=== PATIENT | female | born 1985 | race Caucasian/White ===

== ENCOUNTER 2018-02-04 17:05 | Outpatient (CLI) | payer BC, SELFPAY ==
--- NOTE | 2018-02-04 18:01 | PM.OBTRLD ---
Visit Information Visit Information Date of evaluation: 02/04/18 Primary OB Provider: Iliana Bartholomew Reason for Evaluation: Yes pre-term labor Vital Signs Vital Signs: Blood pressure 117/79, pulse of 104, temperature 97.4? Review of Systems Review of Systems Patient just moved here from [place]. She has a known 24 week twin gestation. Recent ultrasound showed a 2.1 cm cervix. She does have a history of a LEEP procedure. She was walking and felt some tightening and mild cramping and presented for evaluation. She also noticed an increase in her vaginal discharge. She has been using vaginal progesterone. Babies have been moving well. No bleeding. Exam Narrative Exam Narrative: Abdomen is soft, nontender. Speculum exam there is a lot of material in her vagina that she states is the vaginal progesterone. Her cervix appears closed. Sterile vaginal exam: the cervix again feels closed and slightly shortened. Evaluation Evaluation Baseline heart rate: 145 Variability: Average (6-10) monitor decelerations: Absent Cervical dilation (cm): 0 Cervical effacement (%): 50 station: -4 Comments: Patient with some possible mild uterine irritability. heart tone of 1 baby were 150s baseline, 2nd baby 145 baseline. Normal tracing for 24 weeks. Diagnosis, Plan/Disposition Final Diagnosis (1) 24 weeks gestation of : Current Visit: Yes Status: Acute (2) Premature labor: Current Visit: Yes Status: Acute (3) Twin gestation in second trimester: Current Visit: Yes Status: Acute Plan/Disposition Plan: Patient is to push fluids and rest. She has an appointment in 4 days in the OB office. She is to call if she has any worsening of her symptoms prior to that time. OB Disposition: home
== END 2018-02-04 18:05 | disposition home or self-care (01) ==
LOC: LABOR 18:12 → OB 02-05 16:55
PROVIDERS: Visit Provider Specialist
DX: O30.002 Twin pregnancy, unspecified number of placenta and unspecified number of amniotic sacs, second trimester (principal); Z3A.24 24 weeks gestation of pregnancy; O60.02 Preterm labor without delivery, second trimester
CPT/HCPCS: 59025; 59050; G0378; G0379

== ENCOUNTER 2018-02-09 16:51 | Outpatient (CLI) | payer BC, SELFPAY ==
--- NOTE | 2018-02-09 17:39 | PM.OBTRLD ---
Visit Information Visit Information Date of evaluation: 02/09/18 Primary OB Provider: Iliana Bartholomew Reason for Evaluation: Yes pre-term labor Evaluation Evaluation Baseline heart rate: 150 Variability: Moderate (11-25) monitor accelerations: Present Contraction Frequency (minutes): 0 Diagnosis, Plan/Disposition Final Diagnosis (1) Twin gestation in second trimester: Current Visit: No Status: Acute (2) Premature labor: Current Visit: No Status: Acute (3) 24 weeks gestation of : Current Visit: No Status: Acute Plan/Disposition Plan: No contractions seen on the monitor patient is discharged home to be on modified bedrest and pushing fluids. She has a follow-up appointment in 1 week. Precautions reviewed with patient. OB Disposition: home
[2018-02-09 17:46] LABS: Appearance Urine UA CLEAR; Bilirubin Urine UA NEGATIVE (NEGATIVE); Color Urine UA YELLOW; Glucose Urine UA NEGATIVE (Normal); Ketones Urine UA TRACE (NEGATIVE); Leukocyte Esterase Urine UA NEGATIVE (NEGATIVE); Nitrite Urine UA NEGATIVE (Negative); Occult Blood Urine UA NEGATIVE (Negative); Protein Urine UA NEGATIVE (Negative); Urobilinogen Urine UA 0.2 E.U./dL (0.2)
== END 2018-02-09 17:53 | disposition home or self-care (01) ==
LOC: OB 02-10 10:24
PROVIDERS: Visit Provider Specialist
DX: O30.002 Twin pregnancy, unspecified number of placenta and unspecified number of amniotic sacs, second trimester (principal); Z3A.24 24 weeks gestation of pregnancy
CPT/HCPCS: 59025; 81003; G0378; G0379

== ENCOUNTER → 2018-02-18 15:02 | Outpatient (CLI) | payer BC, SELFPAY ==
[2018-02-18 16:58] LABS: Hematocrit 27.7 % (36-46); Hemoglobin 9.7 g/dL (12.0-16.0)
[2018-02-18 17:06] LABS: GTT (PREG) 1 Hour PP 50gm Dose 121 mg/dL (76-139)
== END ==
PROVIDERS: Visit Provider Specialist
DX: Z3A.24 24 weeks gestation of pregnancy (principal)
CPT/HCPCS: 36415; 82950; 85014; 85018

== ENCOUNTER 2018-03-18 16:54 | Outpatient (CLI) | payer BC, OTHER, SELFPAY ==
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
== END 2018-03-18 18:00 | disposition home or self-care (01) ==
LOC: LABOR 17:04 → OB 03-19 10:23
PROVIDERS: Visit Provider Specialist
DX: O30.003 Twin pregnancy, unspecified number of placenta and unspecified number of amniotic sacs, third trimester (principal); V89.2XXA Person injured in unspecified motor-vehicle accident, traffic, initial encounter; Z3A.29 29 weeks gestation of pregnancy
CPT/HCPCS: 59025; G0378; G0379

== ENCOUNTER → 2018-03-26 15:10 | Outpatient (CLI) | payer OTHER, SELFPAY ==
[2018-03-26 16:18] LABS: Hematocrit 31.5 % (36-46); Hemoglobin 10.8 g/dL (12.0-16.0)
== END ==
PROVIDERS: Visit Provider Specialist
DX: D64.9 Anemia, unspecified (principal)
CPT/HCPCS: 36415; 85014; 85018

== ENCOUNTER 2018-04-12 19:42 | Outpatient (CLI) | payer OTHER, SELFPAY ==
--- NOTE | 2018-04-13 10:43 | PM.OBTRLD ---
Visit Information Visit Information Date of evaluation: 04/12/18 Primary OB Provider: Iliana Bartholomew Reason for Evaluation: Yes non-stress test non-stress test reason: decreased movement Evaluation Evaluation Baseline heart rate: 130 Variability: Moderate (11-25) (Both twin a and B) monitor accelerations: Present (Both twin a and B) monitor decelerations: Absent (Both twin a and b) Diagnosis, Plan/Disposition Final Diagnosis (1) Twin gestation in third trimester: Current Visit: No Status: Acute Plan/Disposition Plan: Patient had complained of decreased movement at 33 weeks 3 days. NST reactive for both. Patient reassured OB Disposition: home
== END 2018-04-12 20:26 | disposition home or self-care (01) ==
LOC: OB 04-15 13:13
PROVIDERS: Visit Provider Specialist
DX: O30.003 Twin pregnancy, unspecified number of placenta and unspecified number of amniotic sacs, third trimester (principal); Z3A.29 29 weeks gestation of pregnancy
CPT/HCPCS: 59025; G0378; G0379

== ENCOUNTER → 2018-04-15 09:49 | Outpatient (CLI) | payer OTHER, SELFPAY ==
[2018-04-16 08:00] LABS: Strep Grp B PCR NEG for Grp B Strep
== END ==
PROVIDERS: Visit Provider Specialist
CPT/HCPCS: 87653

== ENCOUNTER 2018-04-21 02:26 | Outpatient (CLI) | payer OTHER, SELFPAY ==
[2018-04-21] MEDS: NIFEdipine 10 MG CAPSULE PO ×4 (03:10→04:23)
== END 2018-04-21 04:41 | disposition home or self-care (01) ==
LOC: OB 04-22 14:45
PROVIDERS: Visit Provider Obstetrics & Gynecology
DX: O60.03 Preterm labor without delivery, third trimester (principal); Z3A.34 34 weeks gestation of pregnancy; O30.003 Twin pregnancy, unspecified number of placenta and unspecified number of amniotic sacs, third trimester
CPT/HCPCS: 59025; 59050; G0378; G0379

== ENCOUNTER 2018-04-22 22:20 | Outpatient (CLI) | payer OTHER, SELFPAY ==
--- NOTE | 2018-04-22 22:59 | PM.OBTRLD ---
Visit Information Visit Information Date of evaluation: 04/22/18 Primary OB Provider: Iliana Bartholomew Reason for Evaluation: Yes pre-term labor Review of Systems Review of Systems Patient complained of sudden onset mid upper abdomen pain. No vaginal bleeding. No leakage of fluid. Mild contractions irregularly. Patient was concerned she was not feeling the baby be moving as well. Evaluation Evaluation Baseline heart rate: 120 (baby B 140) Variability: Moderate (11-25) (both) monitor accelerations: Present (both) monitor decelerations: Absent (both) Contraction Frequency (minutes): 7 Uterine Contraction Intensity: Mild Category of Tracing: I Diagnosis, Plan/Disposition Final Diagnosis (1) Twin gestation in third trimester: Current Visit: No Status: Acute (2) Premature labor: Current Visit: No Status: Acute (3) 34 weeks gestation of : Current Visit: Yes Status: Acute Plan/Disposition Plan: Reactive nonstress test both babies. No evidence of active labor or abruption. Patient was discharged home but return if concern. OB Disposition: home
== END 2018-04-22 23:00 | disposition home or self-care (01) ==
LOC: OB 04-24 11:27
PROVIDERS: Visit Provider Specialist
DX: O60.03 Preterm labor without delivery, third trimester (principal); Z3A.34 34 weeks gestation of pregnancy; O30.003 Twin pregnancy, unspecified number of placenta and unspecified number of amniotic sacs, third trimester
CPT/HCPCS: 59025; 85014; 85018; 96365; G0378; G0379; J1756

== ENCOUNTER → 2018-04-23 11:50 | Oncology outpatient (ONC) | payer OTHER, SELFPAY ==
[2018-04-08 13:50] VITALS: BP 123/83; PULSE 86; RESP 16; TEMP 35.7; O2SAT 100
[2018-04-08] MEDS: IRON SUCROSE 200 MG in SODIUM CHLORIDE 0.9% 100 ML 220 ML IV (13:54)
[2018-04-08 14:05] LABS: Hematocrit 30.3 % (36-46); Hemoglobin 10.4 g/dL (12.0-16.0)
[2018-04-15 15:01] VITALS: BP 126/93; PULSE 78; RESP 16; TEMP 36.6
[2018-04-15 15:10] LABS: Hemoglobin 10.9 g/dL (12.0-16.0)
[2018-04-15] MEDS: IRON SUCROSE 200 MG in SODIUM CHLORIDE 0.9% 100 ML 220 ML IV (16:20)
[2018-04-22 14:00] LABS: Hematocrit 32.5 % (36-46); Hemoglobin 11.2 g/dL (12.0-16.0)
[2018-04-22] MEDS: IRON SUCROSE 200 MG in SODIUM CHLORIDE 0.9% 100 ML 220 ML IV (14:11)
[2018-04-22 14:54] VITALS: BP 123/85; PULSE 81; RESP 18; TEMP 36.9; O2SAT 98
== END ==
PROVIDERS: Visit Provider Specialist
DX: O99.013 Anemia complicating pregnancy, third trimester (principal); D50.9 Iron deficiency anemia, unspecified; Z3A.34 34 weeks gestation of pregnancy
CPT/HCPCS: 85014; 85018; 87653; 96365; 96367; J1756

== ENCOUNTER 2018-04-25 20:38 | Observation (INO) | payer OTHER, SELFPAY ==
--- NOTE | 2018-04-25 21:51 | P.HPOB_ITS ---
OB HPI Date/Time Date of admission: 04/25/18 Date Patient Seen: 04/25/18 Time Patient Seen: 21:47 History of Present Condition Chief complaint: eval of labor : 1 Para: 0 Estimated Date of Delivery: 05/27/18 Estimated Gestational Age (weeks): 35 Narrative: Emily James is a 33 year old female with possible premature labor History of Present care: good care and initiated at week # (9) Dating criteria: LMP confirmed by 1st trimester US Ultrasounds: abnormal US findings Abnormal ultrasound findings: Twin a with mild right lateral ventriculomegaly Obstetrical complications: none Medical complications: none Narrative: Patient arrived on Labor and delivery complaining of increasing contractions. No rupture membranes. Good movement. Preadmission Labs Blood type: AB (+) positive -: Antibody screen: negative, GBS status: negative, HBsAG: negative, HIV: negative and RPR/VDLR: negative -: Rubella: immune PAP: Normal Narrative: Chorionic villus sampling of fetuses normal chromosomes Evaluation Evaluation Baseline heart rate: 130 (baby B 140) Variability: Moderate (11-25) (both) monitor accelerations: Present (both) monitor decelerations: Absent (both) Contraction Frequency (minutes): 4 Uterine Contraction Intensity: Moderate Category of Tracing: I Cervical dilation (cm): 0 Cervical effacement (%): 80 station: 0 PFSH Medical History H/O: depression (Inactive) Surgical History H/O LEEP (Chronic) H/O rhinoplasty (Inactive) Meds Home Medications Medication Instructions Recorded Confirmed Type progesterone micronized 100 mg 100 mg VAG BID #60 each 03/17/18 Rx vaginal insert omeprazole 20 mg capsule,delayed 20 mg PO DAILY #30 cap 04/01/18 Rx release Double Electric Breast Pump #1 ea 04/08/18 Rx Allergies Allergy/AdvReac Type Severity Reaction Status Date / Time No Known Drug Allergies Allergy Verified 04/08/18 13:54 Review of Systems Review of Systems Patient complaining contractions. No leakage of fluid. No signs or symptoms of preeclampsia. Good movement. All systems reviewed & are unremarkable except as noted in HPI and below Exam Vital Signs (past 8 hours): Blood pressure 127/90 pulse 78, temperature 98.8? Narrative Exam Narrative: HEENT exam within normal limits. Lungs are clear to auscultation and percussion. Heart is regular rate and rhythm no S3-S4 or murmurs. Abdomen is soft, nontender. Infants are vertex/transverse. Extremities without edema and nontender. Assessment and Plan (1) Twin gestation in third trimester: Qualifiers: Multiple gestation type: dichorionic and diamniotic Qualified Code(s): O30.043 - Twin , dichorionic/diamniotic, third trimester Current visit: No Status: Acute (2) Premature labor: Qualifiers: labor delivery status: without delivery labor trimester : third trimester Qualified Code(s): O60.03 - labor without delivery, third trimester Current visit: No Status: Acute (3) 35 weeks gestation of : Current visit: Yes Status: Acute Patient was advised by her perinatologist that we should not stop labor. IV fluid bolus was started. Contractions spaced out with the IV fluid bolus. Patient decided she would prefer to be discharged home and the [facility] was not ready to accept her. She will return if her contractions increase. Admission was cancelled. Plan: Plan: Patient was discharged, admission cancelled.
[2018-04-25 23:14] VITALS: BP 132/82; PULSE 76; RESP 16; TEMP 36.8
== END 2018-04-25 23:19 | disposition home or self-care (01) ==
PROVIDERS: Admitting Provider Family Medicine; Visit Provider Family Medicine
DX: O60.03 Preterm labor without delivery, third trimester (principal); O30.043 Twin pregnancy, dichorionic/diamniotic, third trimester; Z3A.35 35 weeks gestation of pregnancy
CPT/HCPCS: 59025; 59050; 96360; G0378; G0379

== ENCOUNTER → 2019-03-08 16:12 | Outpatient (CLI) | payer OTHER, SELFPAY ==
[2019-03-08 17:11] LABS: Influenza A and B by PCR Rapid Negative (Negative)
== END ==
PROVIDERS: Visit Provider Physician Assistant
DX: J02.9 Acute pharyngitis, unspecified (principal); R50.9 Fever, unspecified
CPT/HCPCS: 87070; 87502

== ENCOUNTER 2019-04-04 07:35 | Emergency (ER) | payer OTHER, SELFPAY ==
[2019-04-04 07:35] VITALS: BP 90/74; PULSE 107; RESP 20; TEMP 36.8; O2SAT 99; BMI 19.2
--- NOTE | 2019-04-04 07:49 | DI.RAD.S_ITS ---
PROCEDURE: XR CHEST 2V INDICATIONS: productive cough TECHNIQUE: 2 views of the chest were acquired. COMPARISON: None. FINDINGS: Surgical changes and devices: None. Lungs and pleura: There is an oval indistinct opacity in the left lower lobe. No pleural effusions or pneumothorax. Mediastinum: Mediastinal contours are normal. Heart size is normal. Bones and chest wall: No suspicious bony abnormalities. Soft tissues appear unremarkable. IMPRESSION: 1. Oval indistinct opacity in the left lower lobe likely represents pneumonia given clinical history. However, given its masslike appearance, consider a followup chest x-ray in 4-6 weeks following appropriate therapy to demonstrate resolution. Dictated by: Adan Richards M.D. on 04/04/2019 at 7:23 Approved by: Adan Richards M.D. on 04/04/2019 at 7:25
[2019-04-04 08:03] VITALS: BP 118/80
--- NOTE | 2019-04-04 08:03 | ED.URI ---
HPI - URI/Sore Throat General Chief Complaint: Upper Respiratory Symptoms Stated Complaint: CHEST PAIN/ DIFFICULTY BREATHING 1XWEEK Time Seen by Provider: 04/04/19 07:49 Source: patient Mode of arrival: Ambulatory Limitations: no limitations History of Present Illness HPI Narrative: 34-year-old female nonsmoker with benign medical history presents with a chief complaint of fever, shaking chills cough, productive of yellowish sputum and sharp and stabbing left anterior chest pain gradually worsening for the past few days. She is otherwise healthy and states she presented to a walk-in clinic 5 days ago in received a diagnosis of walking pneumonia and a prescription for a is a throw my seen. She just took her last dose and feels worse. About 1 month ago multiple family members had flu positive swabs and were on Tamiflu. She denies nausea, vomiting or diarrhea but admittedly has a decreased appetite. MD Complaint: fever, cough and nasal congestion Onset (ago): day(s) Duration: constant Severity: moderate Relieving factors: nothing Description of mucous: yellow Able to tolerate fluids by mouth: Yes Associated symptoms: fever, chills and cough Treatments prior to arrival: none Related Data Home Medications Medication Instructions Recorded Confirmed levonorgestrel 20 mcg/24 hours (5 INTRAUTERINE each 06/10/18 03/31/19 yrs) 52 mg intrauterine device Previous Rx's Medication Instructions Recorded Double Electric Breast Pump #1 ea 04/08/18 azithromycin 250 mg tablet See Rx Instructions PO .COMPLEX #6 03/31/19 tab albuterol sulfate 2 inh INHALATION Q4H PRN #1 each 04/04/19 amoxicillin-pot clavulanate 1 tab PO BID #20 tab 04/04/19 [Augmentin] benzonatate [Tessalon Perles] 100 mg PO TID PRN #14 cap 04/04/19 promethazine-codeine 5 ml PO Q4-6H PRN #473 ml 04/04/19 Allergies Allergy/AdvReac Type Severity Reaction Status Date / Time No Known Drug Allergies Allergy Verified 03/31/19 12:09 Review of Systems Constitutional Constitutional: Reports chills, Denies fatigue, Reports fever(s), Denies frequent falls, Denies lethargy, Reports malaise and Denies weakness Eyes Eyes: Denies change in vision, Denies eye discharge, Denies irritation and Denies loss of vision ENT Ears, Nose, Mouth, and Throat: Denies change in voice, Denies dizziness, Denies neck pain, Denies sore throat and Denies throat swelling Cardiovascular Cardiovascular: Denies chest pain, Denies irregular heart rhythm, Denies lightheadedness, Denies palpitations, Reports dyspnea, Denies dyspnea on exertion and Denies orthopnea Respiratory Respiratory: Reports cough, Reports pain with cough, Reports dyspnea, Denies dyspnea on exertion and Reports wheezing Gastrointestinal Gastrointestinal: Denies abdominal pain, Denies change in bowel habits, Denies diarrhea, Denies nausea and Denies vomiting Genitourinary Genitourinary: Denies hematuria, Denies flank pain, Denies urinary incontinence and Denies urinary urgency Musculoskeletal Musculoskeletal: Denies back pain, Denies muscle weakness, Denies neck pain, Denies numbness and Denies tingling Integumentary/Breasts Skin/Breast: Denies pruritus, Denies erythema, Denies rash and Denies wounds Neurologic Neurologic: Denies behavioral changes, Denies confusion, Denies dizziness, Denies frequent falls, Denies loss of vision, Denies numbness, Denies tingling and Denies weakness Psychiatric Psychiatric: Denies anxiety, Denies behavioral changes, Denies confusion, Denies depression, Denies homicidal ideation and Denies suicidal ideation Endocrine Endocrine: Denies fatigue, Denies flushing and Denies palpitations Hematologic/Lymphatic Hematologic/Lymphatic: Denies easy bruising Allergic/Immunologic Allergic/Immunologic: Denies urticaria, Denies throat swelling and Reports wheezing Patient History Medical History H/O: depression (Inactive) Surgical History H/O LEEP (Chronic) H/O rhinoplasty (Inactive) Social History Smoking Status: Never smoker Smoking Status: Never smoker alcohol intake frequency: holidays/special occasions only Exam Narrative Exam Narrative: GENERAL: [34] year old patient appears stated age. Well-nourished, well-developed patient, in mild distress. HEAD: Atraumatic. Normocephalic. EYES: Pupils equal round and reactive. Extraocular motions intact. No scleral icterus. No injection or drainage. ENT: Nose without bleeding, purulent drainage. Throat without erythema, tonsillar hypertrophy or exudate. Airway patent. NECK: Trachea midline. Non tender CARDIOVASCULAR: Regular rate and rhythm without murmurs, gallops, or rubs. RESPIRATORY: Poor effort, and expiratory wheeze, deep breath illicits cough GASTROINTESTINAL: Abdomen soft, non-tender, nondistended. EXTREMITIES: No edema or joint tenderness. BACK: Nontender without deformity or crepitance. No flank tenderness. NEURO: AOx3. SKIN: No rash or erythema of visible areas Initial Vital Signs Initial Vital Signs: Vital Signs Temperature 98.3 F 04/04/19 07:35 Pulse Rate 107 H 04/04/19 07:35 Respiratory Rate 20 04/04/19 07:35 Blood Pressure 90/74 04/04/19 07:35 Pulse Oximetry 99 04/04/19 07:35 Course Orders Ordered: ED Orders 04/04/19 07:49 XR chest 2V Stat 04/04/19 08:31 Blood Culture Stat Complete Blood Count AUTO DIFF Stat Comprehensive Metabolic Panel Stat Lactate (Lactic Acid) Stat Procalcitonin Stat Discontinued Medications Albuterol/Ipratropium (Duoneb) 3 ml INH NOW ONE Stop: 04/04/19 08:05 Last Admin: 04/04/19 08:25 Dose: 3 ml Documented by: ANDERSON Lactated Ringer's (Lactated Ringers) 1,769.01 mls @ 589.67 mls/hr 30 ml/kg infuse over 3 hr (1769.01 ml) IV NOW ONE Stop: 04/04/19 10:59 Last Infusion: 04/04/19 09:51 Dose: 0 mls/hr Documented by: Admin: 04/04/19 08:26 Dose: 999 mls/hr Documented by: YOUNG Ceftriaxone Sodium/Dextrose (Rocephin) 1 gm in 50 mls @ 100 mls/hr IV NOW ONE Stop: 04/04/19 08:29 Last Infusion: 04/04/19 08:55 Dose: 0 mls/hr Documented by: Admin: 04/04/19 08:27 Dose: 100 mls/hr Documented by: YOUNG Ketorolac Tromethamine (Toradol) 15 mg IV NOW ONE Stop: 04/04/19 08:54 Last Admin: 04/04/19 09:25 Dose: 15 mg Documented by: YOUNG Vital Signs Vital signs: Vital Signs - 8 hr 04/04/19 07:35 04/04/19 08:03 04/04/19 08:36 Temperature 98.3 F Pulse Rate 107 H 78 Respiratory Rate 20 12 Blood Pressure 90/74 Blood Pressure [Right Arm] 118/80 Pulse Oximetry 99 98 04/04/19 09:51 Temperature Pulse Rate 98 H Respiratory Rate 18 Blood Pressure 109/73 Blood Pressure [Right Arm] Pulse Oximetry 100 MDM - URI/Sore Throat Lab Data Result diagrams: 04/04/19 08:31 04/04/19 08:31 Labs: Lab Results 04/04/19 04/04/19 04/04/19 Range/Units 08:31 08:31 08:31 WBC 12.6 H (4.5-11.0) X10^3/uL RBC 4.35 (4.0-5.2) X10^6/uL Hgb 13.2 (12.0-16.0) g/dL Hct 37.6 (36-46) % MCV 86.5 (80-100) fL MCH 30.4 (26-34) PG MCHC 35.1 (30-36) % RDW 11.9 (11.6-14.8) % Plt Count 216 (150-400) X10^3/uL Neut % (Auto) 78.7 H (50-75) % Lymph % (Auto) 12.2 L (25-40) % [place] % (Auto) 8.5 (3-14) % Eos % (Auto) 0.4 L (2-4) % Baso % (Auto) 0.2 (0-2) % Neut # (Auto) 9900 H (9517-4309) /uL Lymph # (Auto) 1500 (5391-9247) /uL [place] # (Auto) 1100 H (0-900) /uL Eos # (Auto) 100 (0-450) /uL Baso # (Auto) 0 (0-100) /uL Sodium 139 (137-145) mmol/L Potassium 3.6 (3.4-5.1) mmol/L Chloride 103 (98-107) mmol/L Carbon Dioxide 26 (22-32) mmol/L BUN 11 (7-17) mg/dL Creatinine 0.50 L (0.52-1.04) mg/dL Estimated GFR > 60.0 (>60) mL/min BUN/Creatinine Ratio 22.0 (6-22) Glucose 101 H (70-100) mg/dL Lactate (0.7-2.1) mmol/L Calcium 9.2 (8.4-10.2) mg/dL Total Bilirubin 0.7 (0.2-1.3) mg/dL AST 24 (14-36) IU/L ALT 20 (<35) IU/L Alkaline Phosphatase 72 (38-126) U/L Total Protein 7.3 (6.3-8.2) g/dL Albumin 4.5 (3.5-5.0) g/dL Globulin 2.8 (1.7-4.1) g/dL Albumin/Globulin Ratio 1.6 (1.0-2.8) Procalcitonin < 0.05 (<0.5) ng/mL 04/04/19 Range/Units 08:31 WBC (4.5-11.0) X10^3/uL RBC (4.0-5.2) X10^6/uL Hgb (12.0-16.0) g/dL Hct (36-46) % MCV (80-100) fL MCH (26-34) PG MCHC (30-36) % RDW (11.6-14.8) % Plt Count (150-400) X10^3/uL Neut % (Auto) (50-75) % Lymph % (Auto) (25-40) % [place] % (Auto) (3-14) % Eos % (Auto) (2-4) % Baso % (Auto) (0-2) % Neut # (Auto) (9879-0550) /uL Lymph # (Auto) (7969-3860) /uL [place] # (Auto) (0-900) /uL Eos # (Auto) (0-450) /uL Baso # (Auto) (0-100) /uL Sodium (137-145) mmol/L Potassium (3.4-5.1) mmol/L Chloride (98-107) mmol/L Carbon Dioxide (22-32) mmol/L BUN (7-17) mg/dL Creatinine (0.52-1.04) mg/dL Estimated GFR (>60) mL/min BUN/Creatinine Ratio (6-22) Glucose (70-100) mg/dL Lactate 0.6 L (0.7-2.1) mmol/L Calcium (8.4-10.2) mg/dL Total Bilirubin (0.2-1.3) mg/dL AST (14-36) IU/L ALT (<35) IU/L Alkaline Phosphatase (38-126) U/L Total Protein (6.3-8.2) g/dL Albumin (3.5-5.0) g/dL Globulin (1.7-4.1) g/dL Albumin/Globulin Ratio (1.0-2.8) Procalcitonin (<0.5) ng/mL Discharge Plan Departure Patient Disposition: Home Clinical Impression: Left lower lobe pneumonia Qualifiers: Pneumonia type: due to unspecified organism Qualified Code(s): J18.9 - Pneumonia, unspecified organism Discharge Date/Time: 04/04/19 09:51 Instructions: DI for Pneumonia -- Adult Activity Restrictions/Additional Instructions: *You have been diagnosed with [left lower lobe pneumonia] *What to do: *Take medications as directed: Your given Rocephin 1 g in the emergency department today and a prescription for Augmentin. All antibiotics have the potential to upset your gut, it is reasonable to consider using probiotics to offset the GI complications of these antibiotics *Follow up with your primary care provider in 2-3 days, call for an appointment. Let them know you were seen in the Emergency Department and that we ask that you be seen in follow up *Return to ER if you should have any new, worsening or concerning symptoms *Given your symptoms the Xray is most likely consistent with pneumonia, however, radiology requests a repeat chest xray in 4-6 weeks to be sure Prescriptions: New amoxicillin-pot clavulanate [Augmentin] 875-125 mg tablet 1 tab PO BID Qty: 20 RF: 0 benzonatate [Tessalon Perles] 100 mg capsule 100 mg PO TID PRN (Reason: cough) Qty: 14 RF: 0 promethazine-codeine 6.25-10 mg/5 mL syrup 5 ml PO Q4-6H PRN (Reason: cough) Qty: 473 RF: 0 albuterol sulfate 90 mcg/actuation aerosol powdr breath activated 2 inh INHALATION Q4H PRN (Reason: shortness of breath or wheezing) Qty: 1 RF: 0 No Action azithromycin 250 mg tablet See Rx Instructions PO .COMPLEX Qty: 6 RF: 0 (DME) Double Electric Breast Pump Qty: 1 RF: 0 Mirena 20 mcg/24 hr (5 years) intrauterine device Intrauterine RF: 0
[2019-04-04] MEDS: ALBUTEROL/IPRATROPIUM 3 ML AMPUL INH (08:25)
[2019-04-04] MEDS: LACTATED RINGERS 1,769.01 ML 999 ML IV (08:26)
[2019-04-04] MEDS: CEFTRIAXONE 1 GM/50 ML FROZ.PIGGY IV (08:27)
[2019-04-04 08:36] VITALS: PULSE 78; RESP 12; O2SAT 98
[2019-04-04 08:41] LABS: Add Manual Diff / Slide Review NO; Basophils Absolute Auto 0 /uL (0-100); Basophils Percent Auto 0.2 % (0-2); Eosinophils Absolute Auto 100 /uL (0-450); Eosinophils Percent Auto 0.4 % (2-4); Hematocrit 37.6 % (36-46); Hemoglobin 13.2 g/dL (12.0-16.0); Lymphocytes Absolute Auto 1500 /uL (1100-4500); Lymphocytes Percent Auto 12.2 % (25-40); Mean Corpuscular HGB Conc 35.1 % (30-36); Mean Corpuscular Hemoglobin 30.4 PG (26-34); Mean Corpuscular Volume 86.5 fL (80-100); Monocytes Absolute Auto 1100 /uL (0-900); Monocytes Percent Auto 8.5 % (3-14); Neutrophils Absolute Auto 9900 /uL (1500-7000); Neutrophils Percent Auto 78.7 % (50-75); Platelet Count 216 X10^3/uL (150-400); Red Blood Cell Count 4.35 X10^6/uL (4.0-5.2); Red Cell Distribution Width 11.9 % (11.6-14.8); White Blood Cell Count 12.6 X10^3/uL (4.5-11.0)
[2019-04-04 08:51] LABS: Alanine Aminotransferase 20 IU/L (<35); Albumin 4.5 g/dL (3.5-5.0); Albumin Globulin Ratio 1.6 (1.0-2.8); Alkaline Phosphatase 72 U/L (38-126); Aspartate Aminotransferase 24 IU/L (14-36); Bilirubin Total 0.7 mg/dL (0.2-1.3); Blood Urea Nitrogen 11 mg/dL (7-17); Calcium 9.2 mg/dL (8.4-10.2); Carbon Dioxide 26 mmol/L (22-32); Chloride 103 mmol/L (98-107); Estimated Glomerular Filt Rate > 60.0 mL/min (>60); Globulin 2.8 g/dL (1.7-4.1); Glucose 101 mg/dL (70-100); HEMOLYSIS < 15 (0-50); Lactate (Lactic Acid) 0.6 mmol/L (0.7-2.1); Potassium 3.6 mmol/L (3.4-5.1); Sodium 139 mmol/L (137-145); Total Protein 7.3 g/dL (6.3-8.2)
[2019-04-04 09:23] LABS: Procalcitonin < 0.05 ng/mL (<0.5)
[2019-04-04] MEDS: KETOROLAC 60 MG/2 ML VIAL 15 MG IV (09:25)
[2019-04-04 09:51] VITALS: BP 109/73; PULSE 98; RESP 18; O2SAT 100
== END 2019-04-04 09:51 | disposition home or self-care (01) ==
PROVIDERS: Emergency Provider Emergency Medicine
DX: J18.9 Pneumonia, unspecified organism (principal)
CPT/HCPCS: 36415; 71046; 80053; 83605; 84145; 85025; 87040; 94640; 94667; 96361; 96365; 96375; 99283; 99284; J1885

== ENCOUNTER 2019-05-17 09:44 | Emergency (ER) | payer OTHER, SELFPAY ==
--- NOTE | 2019-05-17 09:48 | DI.RAD.S_ITS ---
PROCEDURE: XR CHEST 2V INDICATIONS: chest pain TECHNIQUE: 2 views of the chest were acquired. COMPARISON: [facility], CR, XR CHEST 2V, 04/04/2019, 7:56. FINDINGS: Surgical changes and devices: None. Lungs and pleura: Lungs are clear. No pleural effusions or pneumothorax. Mediastinum: Mediastinal contours are normal. Heart size is normal. Bones and chest wall: No suspicious bony abnormalities. Soft tissues appear unremarkable. IMPRESSION: Source of chest pain is not found. Dictated by: Hussain Henderson M.D. on 05/17/2019 at 10:03 Approved by: Hussain Henderson M.D. on 05/17/2019 at 10:03
[2019-05-17 09:49] VITALS: BP 136/93; PULSE 96; RESP 18; TEMP 36.8; O2SAT 100
[2019-05-17 10:55] LABS: Add Manual Diff / Slide Review NO; Basophils Absolute Auto 0 /uL (0-100); Basophils Percent Auto 0.4 % (0-2); Eosinophils Absolute Auto 100 /uL (0-450); Hematocrit 39.9 % (36-46); Hemoglobin 13.9 g/dL (12.0-16.0); Lymphocytes Absolute Auto 1500 /uL (1100-4500); Lymphocytes Percent Auto 18.8 % (25-40); Mean Corpuscular HGB Conc 34.8 % (30-36); Mean Corpuscular Hemoglobin 30.1 PG (26-34); Mean Corpuscular Volume 86.4 fL (80-100); Monocytes Absolute Auto 900 /uL (0-900); Monocytes Percent Auto 11.7 % (3-14); Neutrophils Absolute Auto 5400 /uL (1500-7000); Neutrophils Percent Auto 68.1 % (50-75); Platelet Count 285 X10^3/uL (150-400); Red Blood Cell Count 4.62 X10^6/uL (4.0-5.2); Red Cell Distribution Width 11.9 % (11.6-14.8); White Blood Cell Count 7.9 X10^3/uL (4.5-11.0)
[2019-05-17 11:07] LABS: D Dimer 299 ng/mL (<230)
[2019-05-17 11:27] VITALS: BP 105/81; PULSE 80; RESP 22; O2SAT 100
[2019-05-17 12:02] VITALS: BP 112/79; PULSE 91; RESP 17; O2SAT 100
--- NOTE | 2019-05-17 19:56 | ED_ITS ---
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 She states that in February she had influenza. She complains that she has developed a deep intermittent cough associated with chest pain that is sharp rongeur and tearing when coughing. She states that she had pneumonia 1 month ago. She states that it feels very similar to that. She denies a history of pulmonary emboli or phlebitis. She has an IUD in place and does not use any hormones. She denies a history of diabetes mellitus or asthma. She received her flu vaccine this year. She does not smoke cigarettes or drink alcohol. She has had intermittent fever with chills but no sweats. She has had a mild headache with sinus drainage posterior nasal drainage. She was seen in a walk- in clinic and started on Augmentin on Friday. So far she has taken 5 days of antibiotics. She has had mild dizziness. She denies any abdominal pain nausea vomiting diarrhea change in bowel habits or urinary symptoms. Related Data Home Medications Medication Instructions Recorded Confirmed levonorgestrel 20 mcg/24 hours (5 20 mcg INTRAUTERINE .ONCE each 06/10/18 05/17/19 yrs) 52 mg intrauterine device Previous Rx's Medication Instructions Recorded amoxicillin 875 mg-potassium 1 tab PO BID 10 Days #20 tab 05/12/19 clavulanate 125 mg tablet albuterol sulfate 2 inhalation INHALATION Q4-6H PRN 05/17/19 #1 each benzonatate [Tessalon Perles] 100 mg PO TID PRN #20 cap 05/17/19 prednisone 40 mg PO DAILY #10 tab 05/17/19 Allergies Allergy/AdvReac Type Severity Reaction Status Date / Time No Known Drug Allergies Allergy Verified 05/12/19 13:57 Review of Systems Review of Systems Narrative: Her review of systems were all negative except for those mentioned in the history of present illness. Patient History Surgical History H/O LEEP (Chronic) H/O rhinoplasty (Inactive) Social History Smoking Status: Never smoker Smoking Status: Never smoker alcohol intake frequency: holidays/special occasions only Substance Use Type: does not use Exam Narrative Exam Narrative: PHYSICAL EXAM: CONSTITUTIONAL: Awake, Alert, Oriented, Coherent, Cooperative in mild distress with a persistent cough. HEAD: AT/NC EENT: PERRL, FROM of eyes, no discharge, no nystagmus No epistaxis or nasal drainage Oral mucosa is moist and pink, posterior pharynx is without erythema or exudate. NECK: Supple, no obvious JVD, Trachea is midline without stridor, no palpable LN or masses. SPINE: No gross deformity, no palpable tenderness of the cervical, thoracic, lumbar or sacral spine. No CVA tenderness. THORAX: No deformity, retractions., chest wall is mildly tender to AP compression with out crepitus or subcutaneous air. LUNGS: Clear with symmetrical breath sounds without respiratory distress HEART: Normal heart tones, regular rhythm and rate without murmur. ABDOMEN: Soft, non-tender, normal bowel sounds without guarding, rebound, rigidity or palpable mass. EXTREMITIES: No edema, cyanosis, deformity or tenderness. SKIN: No rash, bruising, petechiae or purpura. NEURO: Awake, alert, oriented, conversive, cranial nerves II-XII are symmetrical and normal, moves all 4 extremities and is ambulatory Initial Vital Signs Initial Vital Signs: Vital Signs Temperature 98.2 F 05/17/19 09:49 Pulse Rate 96 H 05/17/19 09:49 Respiratory Rate 18 05/17/19 09:49 Blood Pressure 136/93 H 05/17/19 09:49 Pulse Oximetry 100 05/17/19 09:49 Course Vital Signs Vital signs: Vital Signs - 8 hr 05/17/19 12:02 Pulse Rate 91 H Respiratory Rate 17 Blood Pressure [Left Arm] 112/79 Pulse Oximetry 100 MDM - Chest Pain Lab Data Result diagrams: 05/17/19 10:42 Labs: Lab Results 05/17/19 05/17/19 Range/Units 10:42 10:42 WBC 7.9 (4.5-11.0) X10^3/uL RBC 4.62 (4.0-5.2) X10^6/uL Hgb 13.9 (12.0-16.0) g/dL Hct 39.9 (36-46) % MCV 86.4 (80-100) fL MCH 30.1 (26-34) PG MCHC 34.8 (30-36) % RDW 11.9 (11.6-14.8) % Plt Count 285 (150-400) X10^3/uL Neut % (Auto) 68.1 (50-75) % Lymph % (Auto) 18.8 L (25-40) % [place] % (Auto) 11.7 (3-14) % Eos % (Auto) 1.0 L (2-4) % Baso % (Auto) 0.4 (0-2) % Neut # (Auto) 5400 (8159-0468) /uL Lymph # (Auto) 1500 (7224-5324) /uL [place] # (Auto) 900 (0-900) /uL Eos # (Auto) 100 (0-450) /uL Baso # (Auto) 0 (0-100) /uL D-Dimer 299 H (<230) ng/mL Discharge Plan Departure Patient Disposition: Home Clinical Impression: Bronchitis, Acute costochondritis Discharge Date/Time: 05/17/19 12:10 Instructions: DI for Acute Bronchitis, DI for Costochondritis Activity Restrictions/Additional Instructions: Drink plenty of fluids 2-3 L per day. Continue your Augmentin until gone. Follow-up with your primary care physician and be rechecked in 3 days. Use the Tessalon Perles, prednisone, and albuterol for your cough and chest discomfort. Prescriptions: New albuterol sulfate 90 mcg/actuation aerosol powdr breath activated 2 inhalation INHALATION Q4-6H PRN (Reason: shortness of breath or wheezing) Qty: 1 RF: 0 prednisone 20 mg tablet 40 mg PO DAILY Qty: 10 RF: 0 benzonatate [Tessalon Perles] 100 mg capsule 100 mg PO TID PRN (Reason: cough) Qty: 20 RF: 0 No Action amoxicillin-pot clavulanate [Augmentin] 875-125 mg tablet 1 tab PO BID 10 Days Qty: 20 RF: 0 Mirena 20 mcg/24 hr (5 years) intrauterine device 20 mcg Intrauterine .ONCE RF: 0
== END 2019-05-17 12:10 | disposition home or self-care (01) ==
PROVIDERS: Emergency Provider Emergency Medicine
DX: J40 Bronchitis, not specified as acute or chronic (principal); M94.0 Chondrocostal junction syndrome [Tietze]; R07.9 Chest pain, unspecified
CPT/HCPCS: 71046; 85025; 85379; 93005; 99281; 99285

== ENCOUNTER → 2019-06-03 09:59 | Outpatient (CLI) | payer OTHER, SELFPAY ==
[2019-06-03 12:15] LABS: TSH w/ Reflex to FT4 0.49 uIU/mL (0.47-4.68)
== END ==
PROVIDERS: PCP Nurse Practitioner Family; Referring Provider Nurse Practitioner Family; Visit Provider Nurse Practitioner Family
DX: F41.9 Anxiety disorder, unspecified (principal)
CPT/HCPCS: 36415; 84443

== ENCOUNTER → 2020-07-24 07:48 | Outpatient (CLI) | payer OTHER, SELFPAY ==
[2020-07-24 08:07] LABS: Hematocrit 41.2 % (36-46); Hemoglobin 13.9 g/dL (12.0-16.0); Mean Corpuscular HGB Conc 33.7 % (30-36); Mean Corpuscular Hemoglobin 29.6 PG (26-34); Platelet Count 215 X10^3/uL (150-400); Red Blood Cell Count 4.68 X10^6/uL (4.0-5.2); Red Cell Distribution Width 12.4 % (11.6-14.8); White Blood Cell Count 6.9 X10^3/uL (4.5-11.0)
[2020-07-24 08:15] LABS: Alanine Aminotransferase 17 IU/L (<35); Albumin 4.6 g/dL (3.5-5.0); Albumin Globulin Ratio 1.6 (1.0-2.8); Alkaline Phosphatase 48 U/L (38-126); Aspartate Aminotransferase 26 IU/L (14-36); BUN Creatinine Ratio 23.7 (6-22); Bilirubin Total 0.3 mg/dL (0.2-1.3); Blood Urea Nitrogen 14 mg/dL (7-17); Calcium 9.6 mg/dL (8.4-10.2); Carbon Dioxide 29 mmol/L (22-32); Chloride 104 mmol/L (98-107); Cholesterol 138 mg/dL (140-199); Estimated Glomerular Filt Rate > 60.0 mL/min (>60); Globulin 2.9 g/dL (1.7-4.1); Glucose 100 mg/dL (70-100); HDL Cholesterol 48 mg/dL (40-60); HEMOLYSIS < 15 (0-50); LDL Cholesterol Calculated 73 mg/dL (<100); Magnesium 1.9 mg/dL (1.6-2.3); Potassium 4.3 mmol/L (3.4-5.1); Sodium 138 mmol/L (137-145); Total Protein 7.5 g/dL (6.3-8.2); Triglycerides 84 mg/dL (35-150)
[2020-07-24 09:03] LABS: Vitamin B12 300 pg/mL (239-931)
[2020-07-24 09:04] LABS: TSH w/ Reflex to FT4 0.83 uIU/mL (0.47-4.68)
== END ==
PROVIDERS: PCP Nurse Practitioner Family; Referring Provider Nurse Practitioner Family; Visit Provider Nurse Practitioner Family
DX: Z00.00 Encounter for general adult medical examination without abnormal findings (principal); R25.3 Fasciculation; Z13.6 Encounter for screening for cardiovascular disorders
CPT/HCPCS: 36415; 80053; 80061; 82607; 83735; 84443; 85027

== ENCOUNTER → 2021-04-16 11:56 | Outpatient (CLI) | payer OTHER, SELFPAY ==
--- NOTE | 2021-04-16 11:58 | DI.MG.S_ITS ---
BILATERAL DIGITAL DIAGNOSTIC MAMMOGRAM 3D/2D: 04/16/2021 CLINICAL: Baseline. Right breast lump. No prior exams were available for comparison. The tissue of both breasts is extremely dense, which lowers the sensitivity of mammography. No significant masses, calcifications, or other findings are seen in either breast. IMPRESSION: INCOMPLETE: NEEDS ADDITIONAL IMAGING EVALUATION There are no abnormalities seen in the right breast to correspond with the palpable abnormality in the area of the skin marker at approximately 9 o'clock or in the area of reported finding at 7 o'clock. However, ultrasound is recommended. Ultrasound will be performed immediately following the current exam. This exam was interpreted at Station ID: [id number]. NOTE: For mammograms, a report in lay terms will be sent to the patient. Approximately 15% of breast malignancies will not be visualized mammographically. In the management of a palpable breast mass, a negative mammogram must not discourage biopsy of a clinically suspicious lesion. Electronically Signed By: Adan Richards M.D. ddp/:04/16/2021 12:49:18 ACR BI-RADS Category 0: Incomplete [id number]
--- NOTE | 2021-04-16 11:58 | DI.US.S_ITS ---
LIMITED ULTRASOUND OF RIGHT BREAST: 04/16/2021 CLINICAL: Palpable right breast lump. Comparison is made to exam dated: 04/16/2021 [facility]. Color flow and real-time ultrasound of the right breast 9-10 o'clock region were performed on the areas of interest. There is a 2.1 cm x 1.2 cm x 2.1 cm oval cyst with a partial thin internal septation in the right breast at 10 o'clock anterior depth 2 cm from the nipple. This oval cyst is anechoic with a well-defined boundary and posterior acoustic enhancement. This correlates as palpated. Color flow imaging demonstrates that there is no vascularity present. IMPRESSION: BENIGN There is no sonographic evidence of malignancy. The 2.1 cm x 1.2 cm x 2.1 cm oval cyst in the right breast appears benign and correlates with patient's indicated region of palpable abnormality. There is no abnormality seen in the right breast to correspond with the reported palpable abnormality at 7 o'clock, however, clinical followup is recommended. A 1 year screening mammogram is recommended given patient's calculated increased risk for breast cancer. In addition, given patient's calculated lifetime risk of over 20% and extremely dense breasts, patient may also be a candidate for screening breast MRI. This exam was interpreted at Station ID: [id number]. Electronically Signed By: Adan chin/:04/16/2021 13:14:18 letter sent: Clinical Evaluation Ultrasound BI-RADS: 2 Benign
== END ==
PROVIDERS: PCP Nurse Practitioner Family; Referring Provider Specialist; Visit Provider Specialist
DX: N63.13 Unspecified lump in the right breast, lower outer quadrant; R92.2 Inconclusive mammogram; N60.01 Solitary cyst of right breast
CPT/HCPCS: 76642; 77066; G0279

== ENCOUNTER → 2021-09-03 08:49 | Outpatient (CLI) | payer OTHER, SELFPAY ==
--- NOTE | 2021-09-03 08:50 | DI.MG.S_ITS ---
UNILATERAL LEFT DIGITAL DIAGNOSTIC MAMMOGRAM 3D/2D: 09/03/2021 CLINICAL: Palpable left breast lump. Comparison is made to exam dated: 04/16/2021 mammogram - [facility]. The tissue of left breast is extremely dense, which lowers the sensitivity of mammography. No significant masses, calcifications, or other findings are seen in the breast. IMPRESSION: INCOMPLETE: NEEDS ADDITIONAL IMAGING EVALUATION There is no abnormality seen in the left breast to correspond with the area of clinical concern and palpable abnormality indicated by triangular marker in the posterior depth in the upper outer quadrant. An ultrasound is recommended for further evaluation and is scheduled to immediately follow this examination. This exam was interpreted at Station ID: [id number]. NOTE: For mammograms, a report in lay terms will be sent to the patient. Approximately 15% of breast malignancies will not be visualized mammographically. In the management of a palpable breast mass, a negative mammogram must not discourage biopsy of a clinically suspicious lesion. Electronically Signed By: Sukhjinder Bustos M.D. aty/:09/03/2021 10:19:21 ACR BI-RADS Category 0: Incomplete [id number]
--- NOTE | 2021-09-03 08:50 | DI.US.S_ITS ---
LIMITED ULTRASOUND OF LEFT BREAST AND AXILLA: 09/03/2021 CLINICAL: Palpable left breast lump and focal pain. No prior exams were available for comparison. Color flow and real-time ultrasound of the left breast 1 o'clock, and axilla regions were performed. Castro scale images of the real-time examination were reviewed. There are various sized simple cysts in the left breast in the upper outer quadrant that correlate with clinical concern and palpable abnormalities. Largest measures 1.6 x 1.2 x 1.8 cm in size. No significant abnormalities were seen sonographically in the left axilla. IMPRESSION: BENIGN There is no sonographic evidence of malignancy. The area of palpable concern corresponds with simple cysts and is benign. Recommend clinical follow up for persistent or worsening symptoms, or development of any clinically suspicious findings. Cyst aspiration for symptomatic relief may be considered if needed. Recommend initiating routine screening mammograms at age 40. Additionally, patient has an elevated lifetime risk for breast cancer of greater than 20%. Recommend consideration for screening breast MRI as an adjunct to screening mammography. Findings and recommendations were conveyed to the patient during today's evaluation. This exam was interpreted at Station ID: [id number]. Electronically Signed By: Sukhjinder Bustos M.D. aty/:09/03/2021 11:51:08 letter sent: Clinical Evaluation Ultrasound BI-RADS: 2 Benign
== END ==
PROVIDERS: PCP Nurse Practitioner Family; Referring Provider Specialist; Visit Provider Specialist
DX: R92.8 Other abnormal and inconclusive findings on diagnostic imaging of breast; N60.02 Solitary cyst of left breast; N64.4 Mastodynia
CPT/HCPCS: 76642; 77065; G0279

== ENCOUNTER → 2021-11-27 18:12 | Outpatient (CLI) | payer OTHER, SELFPAY | PROVIDERS: PCP Family Medicine; Visit Provider Nurse Practitioner Critical Care Medicine | DX: N39.0 Urinary tract infection, site not specified (principal) | CPT/HCPCS: 87077; 87086; 87186 ==

== ENCOUNTER → 2022-10-14 08:05 | Outpatient (CLI) | payer OTHER, SELFPAY ==
[2022-10-14 08:59] LABS: Add Manual Diff / Slide Review NO; Basophils Absolute Auto 0 /uL (0-100); Basophils Percent Auto 0.3 % (0-2); Eosinophils Absolute Auto 100 /uL (0-450); Eosinophils Percent Auto 1.6 % (2-4); Hematocrit 39.4 % (36-46); Hemoglobin 13.6 g/dL (12.0-16.0); Lymphocytes Absolute Auto 1400 /uL (1100-4500); Mean Corpuscular HGB Conc 34.5 % (30-36); Mean Corpuscular Hemoglobin 29.9 PG (26-34); Mean Corpuscular Volume 86.8 fL (80-100); Monocytes Absolute Auto 600 /uL (0-900); Monocytes Percent Auto 12.2 % (3-14); Neutrophils Absolute Auto 2900 /uL (1500-7000); Neutrophils Percent Auto 57.9 % (50-75); Platelet Count 206 X10^3/uL (150-400); Red Blood Cell Count 4.54 X10^6/uL (4.0-5.2); Red Cell Distribution Width 11.7 % (11.6-14.8)
[2022-10-14 09:30] LABS: Alanine Aminotransferase 18 IU/L (<35); Albumin 4.5 g/dL (3.5-5.0); Albumin Globulin Ratio 1.5 (1.0-2.8); Alkaline Phosphatase 52 U/L (38-126); Aspartate Aminotransferase 23 IU/L (14-36); BUN Creatinine Ratio 18.6 (6-22); Bilirubin Total 0.5 mg/dL (0.2-1.3); Blood Urea Nitrogen 13 mg/dL (7-17); Calcium 9.1 mg/dL (8.4-10.2); Carbon Dioxide 31 mmol/L (22-32); Chloride 100 mmol/L (98-107); Cholesterol 133 mg/dL (140-199); Estimated Glomerular Filt Rate > 60 mL/min (>60); Glucose 86 mg/dL (70-100); HDL Cholesterol 40 mg/dL (40-60); HEMOLYSIS < 15 (0-50); LDL Cholesterol Calculated 74 mg/dL (<100); Potassium 4.1 mmol/L (3.4-5.1); Sodium 138 mmol/L (137-145); Total Protein 7.5 g/dL (6.3-8.2); Triglycerides 93 mg/dL (35-150)
[2022-10-14 10:04] LABS: TSH w/ Reflex to FT4 0.54 uIU/mL (0.47-4.68)
[2022-10-14 11:28] LABS: Appearance Urine UA SL CLOUDY; Bilirubin Urine UA NEGATIVE (NEGATIVE); Color Urine UA YELLOW; Glucose Urine UA NEGATIVE (Negative); Ketones Urine UA NEGATIVE (NEGATIVE); Leukocyte Esterase Urine UA 2+ (NEGATIVE); Nitrite Urine UA NEGATIVE (Negative); Occult Blood Urine UA NEGATIVE (Negative); Protein Urine UA TRACE (Negative); Urobilinogen Urine UA 0.2 E.U./dL (0.2)
[2022-10-14 11:40] LABS: Bacteria Urine Moderate (10-30); Culture Indicated Urine Specimen Cultured; RBC Urine 1-5/HPF (0-5/HPF); Squamous Epithelial Cell Urine 10-30 /HPF (0-5/HPF); WBC Urine 10-30/HPF (0-5/HPF)
== END ==
PROVIDERS: PCP Family Medicine; Referring Provider Family Medicine; Visit Provider Family Medicine
DX: F41.8 Other specified anxiety disorders (principal); N60.01 Solitary cyst of right breast; N60.02 Solitary cyst of left breast; R30.0 Dysuria
CPT/HCPCS: 36415; 80053; 80061; 81001; 82306; 84443; 85025; 87086

== ENCOUNTER → 2022-10-21 13:46 | Outpatient (CLI) | payer OTHER, SELFPAY | PROVIDERS: PCP Family Medicine; Visit Provider Registered Nurse Diabetes Educator | DX: N39.0 Urinary tract infection, site not specified (principal); R10.9 Unspecified abdominal pain | CPT/HCPCS: 87086 ==

== ENCOUNTER → 2022-10-21 14:31 | Outpatient (CLI) | payer OTHER, SELFPAY ==
[2022-10-21 15:17] LABS: Add Manual Diff / Slide Review NO; Basophils Absolute Auto 0 /uL (0-100); Basophils Percent Auto 0.3 % (0-2); Eosinophils Absolute Auto 100 /uL (0-450); Eosinophils Percent Auto 1.4 % (2-4); Hematocrit 38.8 % (36-46); Hemoglobin 13.3 g/dL (12.0-16.0); Lymphocytes Absolute Auto 2100 /uL (1100-4500); Lymphocytes Percent Auto 21.1 % (25-40); Mean Corpuscular HGB Conc 34.3 % (30-36); Mean Corpuscular Hemoglobin 29.8 PG (26-34); Mean Corpuscular Volume 87.1 fL (80-100); Monocytes Absolute Auto 700 /uL (0-900); Monocytes Percent Auto 7.4 % (3-14); Neutrophils Absolute Auto 7100 /uL (1500-7000); Neutrophils Percent Auto 69.8 % (50-75); Platelet Count 266 X10^3/uL (150-400); Red Blood Cell Count 4.46 X10^6/uL (4.0-5.2); Red Cell Distribution Width 11.9 % (11.6-14.8); White Blood Cell Count 10.2 X10^3/uL (4.5-11.0)
[2022-10-21 15:36] LABS: Alanine Aminotransferase 20 IU/L (<35); Albumin 4.5 g/dL (3.5-5.0); Albumin Globulin Ratio 1.6 (1.0-2.8); Alkaline Phosphatase 54 U/L (38-126); Aspartate Aminotransferase 23 IU/L (14-36); BUN Creatinine Ratio 20.3 (6-22); Bilirubin Total 0.3 mg/dL (0.2-1.3); Blood Urea Nitrogen 12 mg/dL (7-17); C-Reactive Protein Quant < 0.5 mg/dL (<1.0); Carbon Dioxide 26 mmol/L (22-32); Chloride 103 mmol/L (98-107); Estimated Glomerular Filt Rate > 60 mL/min (>60); Globulin 2.9 g/dL (1.7-4.1); Glucose 95 mg/dL (70-100); HEMOLYSIS < 15 (0-50); Lipase 207 U/L (23-300); Potassium 4.1 mmol/L (3.4-5.1); Sodium 138 mmol/L (137-145); Total Protein 7.4 g/dL (6.3-8.2)
[2022-10-21 15:41] LABS: Erythrocyte Sedimentation Rate 6 MM/HR (0-20)
== END ==
PROVIDERS: PCP Family Medicine; Referring Provider Registered Nurse Diabetes Educator; Visit Provider Registered Nurse Diabetes Educator
DX: R10.9 Unspecified abdominal pain (principal); N39.0 Urinary tract infection, site not specified
CPT/HCPCS: 36415; 80053; 83690; 85025; 85651; 86140; 87086

== ENCOUNTER 2022-10-22 09:53 | Emergency (ER) | payer OTHER, SELFPAY ==
[2022-10-22 10:01] VITALS: BP 135/104; PULSE 109; RESP 18; TEMP 37.1; O2SAT 99; BMI 18.4
--- NOTE | 2022-10-22 10:16 | DI.CT.S_ITS ---
PROCEDURE: CT ABDOMEN PELVIS W CON INDICATIONS: low abd pain TECHNIQUE: After the administration of intravenous contrast, axial sections acquired from the lung bases to the pubic symphysis. Coronal and sagittal reformats were performed. For radiation dose reduction, the following was used: automated exposure control, adjustment of mA and/or kV according to patient size. COMPARISON: None. FINDINGS: Image quality: Excellent. Lung bases: Lung bases are clear. Heart size is normal. Solid organs: Liver: The liver has no mass or intrahepatic biliary ductal dilatation. The portal vein and hepatic veins are patent. Biliary: The gallbladder has no gallstones, pericholecystic fluid, gallbladder wall thickening, or surrounding inflammatory change. Pancreas: The pancreas has no mass or ductal dilatation. There is no surrounding inflammation. Spleen: Normal size. There are no masses. Adrenals: No hypertrophy or nodules. Kidneys: No obstructive calculus or hydronephrosis. No solid mass. No cystic mass. Peritoneum and bowel: The distal esophagus and stomach are normal. The small bowel has a normal caliber and appearance. The terminal ileum is normal. The large bowel has a normal caliber and appearance. The appendix is normal. No free fluid or air. Nodes and vessels: No retroperitoneal or mesenteric adenopathy by size criteria. Aorta and inferior vena cava are normal in size. Miscellaneous: No abdominal wall mass or hernia. PELVIS: Genitourinary: The bladder has no wall thickening or mass. No bladder calcifications. The uterus has heterogenous attenuation, possibly fibroids. Bones: No suspicious bony lesions. No vertebral body compression fractures. IMPRESSION: No acute abdominal or pelvic abnormality. Dictated by: Michele Guillory M.D. on 10/22/2022 at 9:42 Approved by: Michele Guillory M.D. on 10/22/2022 at 9:49
[2022-10-22 10:29] LABS: Add Manual Diff / Slide Review NO; Basophils Absolute Auto 0 /uL (0-100); Basophils Percent Auto 0.4 % (0-2); Eosinophils Absolute Auto 100 /uL (0-450); Eosinophils Percent Auto 1.7 % (2-4); Hematocrit 40.5 % (36-46); Hemoglobin 14.2 g/dL (12.0-16.0); Lymphocytes Absolute Auto 1600 /uL (1100-4500); Lymphocytes Percent Auto 21.9 % (25-40); Mean Corpuscular HGB Conc 35.1 % (30-36); Mean Corpuscular Hemoglobin 30.5 PG (26-34); Mean Corpuscular Volume 86.9 fL (80-100); Monocytes Absolute Auto 600 /uL (0-900); Monocytes Percent Auto 9.1 % (3-14); Neutrophils Absolute Auto 4800 /uL (1500-7000); Neutrophils Percent Auto 66.9 % (50-75); Platelet Count 265 X10^3/uL (150-400); Red Blood Cell Count 4.67 X10^6/uL (4.0-5.2); Red Cell Distribution Width 11.9 % (11.6-14.8); White Blood Cell Count 7.1 X10^3/uL (4.5-11.0)
[2022-10-22 10:38] LABS: Culture Indicated Urine Specimen Cultured
[2022-10-22] MEDS: KETOROLAC 30 MG/ML VIAL 15 MG IV (10:38)
[2022-10-22 10:39] LABS: Alanine Aminotransferase 20 IU/L (<35); Albumin 4.5 g/dL (3.5-5.0); Albumin Globulin Ratio 1.5 (1.0-2.8); Alkaline Phosphatase 47 U/L (38-126); Aspartate Aminotransferase 24 IU/L (14-36); BUN Creatinine Ratio 23.1 (6-22); Bilirubin Total 0.6 mg/dL (0.2-1.3); Blood Urea Nitrogen 15 mg/dL (7-17); Carbon Dioxide 28 mmol/L (22-32); Chloride 105 mmol/L (98-107); Estimated Glomerular Filt Rate > 60 mL/min (>60); Globulin 3.1 g/dL (1.7-4.1); Glucose 81 mg/dL (70-100); HEMOLYSIS < 15 (0-50); Lipase 288 U/L (23-300); Potassium 4.1 mmol/L (3.4-5.1); Sodium 139 mmol/L (137-145); Total Protein 7.6 g/dL (6.3-8.2)
[2022-10-22 10:39] LABS: Squamous Epithelial Cell Urine 10-30 /HPF (0-5/HPF); WBC Urine 30-100/HPF (0-5/HPF)
[2022-10-22] MEDS: SODIUM CHLORIDE 0.9% 1,000 ML 1000 ML IV (10:39)
[2022-10-22 10:40] LABS: Bacteria Urine Moderate (10-30); RBC Urine None Seen (0-5/HPF)
[2022-10-22 11:11] VITALS: BP 124/81; PULSE 88; RESP 18; O2SAT 100
--- NOTE | 2022-10-22 12:03 | ED.ABDPAIN ---
HPI - Abdominal Pain <Rufina Gonzalez PA-C - Last Filed: 10/22/22 12:17> General Chief Complaint: Abdominal Pain Stated Complaint: adb pain T-4 getting worse Time Seen by Provider: 10/22/22 10:10 Source: patient Mode of arrival: Ambulatory History of Present Illness HPI narrative: 37-year-old female with past medical history anxiety, depression presents to the ED with 5 days of lower abdominal pain. Patient was prescribed Macrobid on 10/14/2022 for a urinary tract infection, patient completed the course as prescribed. However, patient states she started feeling worse 5 days ago with lower abdominal pain, nausea, low-grade fever, cloudy urine, urinary urgency. Patient denies dysuria, chills, vomiting, flank pain, constipation, diarrhea, hematochezia, melena, lightheadedness, dizziness, syncope. Last menstrual period was 09/30/22. Related Data Previous Rx's Medication Instructions Recorded phenazopyridine 100 mg tablet 100 mg PO TID PRN pain 6 doses #7 11/27/21 (Pyridium) tabs bupropion HCl 150 mg 24 hr tablet, 300 mg PO QAM #180 tabs 10/03/22 extended release clonazepam 0.5 mg tablet (Klonopin) 0.5 mg PO BID PRN anxiety #30 tabs 10/07/22 cefpodoxime 200 mg tablet 200 mg PO Q12H 14 days #28 tabs 10/22/22 Allergies Allergy/AdvReac Type Severity Reaction Status Date / Time doxycycline AdvReac Intermediate numbness Verified 10/22/22 10:05 in hands Review of Systems <Rufina Gonzalez PA-C - Last Filed: 10/22/22 12:17> Review of Systems ROS Unobtainable: All systems reviewed & are unremarkable except as noted in HPI and below Constitutional Constitutional: Denies chills, Denies fatigue, Denies fever(s), Denies frequent falls, Denies lethargy and Denies weakness Eyes Eyes: Denies change in vision, Denies eye discharge, Denies irritation and Denies loss of vision ENT Ears, Nose, Mouth, and Throat: Denies change in voice, Denies dizziness, Denies neck pain, Denies sore throat and Denies throat swelling Cardiovascular Cardiovascular: Denies chest pain, Denies irregular heart rhythm, Denies lightheadedness, Denies palpitations, Denies dyspnea, Denies dyspnea on exertion and Denies orthopnea Respiratory Respiratory: Denies cough, Denies dyspnea, Denies dyspnea on exertion and Denies wheezing Gastrointestinal Gastrointestinal: Reports abdominal pain, Denies change in bowel habits, Denies diarrhea, Reports nausea and Denies vomiting Genitourinary Genitourinary: Denies hematuria, Denies flank pain, Denies urinary incontinence and Denies urinary urgency Comments: Cloudy urine, urinary urgency Musculoskeletal Musculoskeletal: Denies back pain, Denies muscle weakness, Denies neck pain, Denies numbness and Denies tingling Integumentary/Breasts Skin/Breast: Denies pruritus, Denies erythema, Denies rash and Denies wounds Neurologic Neurologic: Denies behavioral changes, Denies confusion, Denies dizziness, Denies frequent falls, Denies loss of vision, Denies numbness, Denies tingling and Denies weakness Psychiatric Psychiatric: Denies anxiety, Denies behavioral changes, Denies confusion, Denies depression, Denies homicidal ideation and Denies suicidal ideation Endocrine Endocrine: Denies fatigue, Denies flushing and Denies palpitations Hematologic/Lymphatic Hematologic/Lymphatic: Denies easy bruising Allergic/Immunologic Allergic/Immunologic: Denies urticaria, Denies throat swelling and Denies wheezing Patient History <Rufina Gonzalez PA-C - Last Filed: 10/22/22 12:17> Medical History Anxiety Depression Encounter for wellness examination in adult (07/20/20) H/O: depression Mixed anxiety and depressive disorder Muscle twitching Surgical History H/O LEEP (~2015) H/O rhinoplasty Social History Smoking Status: Never smoker Smoking Status: Never smoker alcohol intake frequency: holidays/special occasions only Substance Use Type: does not use Exam <Rufina Gonzalez PA-C - Last Filed: 10/22/22 12:17> Narrative Exam Narrative: Const General:?cooperative, healthy appearing and comfortable HENMT Head:?normal to inspection Ears:?hearing grossly normal bilaterally Nose:?external nose normal Face and sinus:?normal facial exam and sinuses nontender Mouth:?oral mucosae normal Throat:?posterior oropharynx normal Eyes General:?appearance normal, both eyes and all related structures Neck Neck:?normal visual inspection and no lymphadenopathy noted Resp Effort & Inspection:?normal respiratory effort Auscultation:?clear to auscultation bilaterally Cardio Rate:?regular rate Rhythm:?regular rhythm GI Abdomen is soft, nondistended. Abdomen is tender to palpation in the suprapubic and right lower quadrant. Neuro General:?patient alert, patient awake and patient oriented x3 Initial Vital Signs Initial Vital Signs: Vital Signs Temperature 98.8 F 10/22/22 10:01 Pulse Rate 109 H 10/22/22 10:01 Respiratory Rate 18 10/22/22 10:01 Blood Pressure 135/104 H 10/22/22 10:01 Pulse Oximetry 99 10/22/22 10:01 Oxygen Delivery Method Room Air 10/22/22 10:01 <Ethan Erwin DO - Last Filed: 10/22/22 16:31> Initial Vital Signs Initial Vital Signs: Vital Signs Temperature 98.8 F 10/22/22 10:01 Pulse Rate 109 H 10/22/22 10:01 Respiratory Rate 18 10/22/22 10:01 Blood Pressure 135/104 H 10/22/22 10:01 Pulse Oximetry 99 10/22/22 10:01 Oxygen Delivery Method Room Air 10/22/22 10:01 Course <Rufina Gonzalez PA-C - Last Filed: 10/22/22 12:17> Orders Ordered: ED Orders 10/22/22 10:15 Urine Culture Stat Urine Microscopic Stat 10/22/22 10:16 CT abdomen pelvis w con Stat 10/22/22 10:23 Complete Blood Count AUTO DIFF Stat Comprehensive Metabolic Panel Stat Lipase Stat Discontinued Medications Sodium Chloride (Normal Saline 0.9%) 1,000 mls @ 1,000 mls/hr IV BOLUS ONE Stop: 10/22/22 11:06 Last Infusion: 10/22/22 11:11 Dose: 0 mls/hr Documented By: Admin: 10/22/22 10:39 Dose: 1,000 mls/hr Documented By: NR Ketorolac Tromethamine (Ketorolac 30 Mg/Ml Vial) 15 mg IV NOW ONE Stop: 10/22/22 10:22 Last Admin: 10/22/22 10:38 Dose: 15 mg Documented By: DANIEL Ondansetron HCl (Ondansetron 4 Mg Odt) 4 mg PO NOW PRN PRN Reason: Nausea And Vomiting Ondansetron HCl (Ondansetron 4 Mg/2 Ml Inj) 4 mg IV NOW PRN PRN Reason: Nausea And Vomiting Vital Signs Vital signs: Vital Signs - 8 hr 10/22/22 10:01 10/22/22 11:11 Temperature 98.8 F Pulse Rate 109 H 88 Respiratory Rate 18 18 Blood Pressure 135/104 H 124/81 Pulse Oximetry 99 100 Oxygen Delivery Method Room Air Room Air <Ethan Erwin DO - Last Filed: 10/22/22 16:31> Orders Ordered: ED Orders 10/22/22 10:15 Urine Culture Stat Urine Microscopic Stat 10/22/22 10:16 CT abdomen pelvis w con Stat 10/22/22 10:23 Complete Blood Count AUTO DIFF Stat Comprehensive Metabolic Panel Stat Lipase Stat Discontinued Medications Sodium Chloride (Normal Saline 0.9%) 1,000 mls @ 1,000 mls/hr IV BOLUS ONE Stop: 10/22/22 11:06 Last Infusion: 10/22/22 11:11 Dose: 0 mls/hr Documented By: Admin: 10/22/22 10:39 Dose: 1,000 mls/hr Documented By: DANIEL Ketorolac Tromethamine (Ketorolac 30 Mg/Ml Vial) 15 mg IV NOW ONE Stop: 10/22/22 10:22 Last Admin: 10/22/22 10:38 Dose: 15 mg Documented By: DANIEL Ondansetron HCl (Ondansetron 4 Mg Odt) 4 mg PO NOW PRN PRN Reason: Nausea And Vomiting Ondansetron HCl (Ondansetron 4 Mg/2 Ml Inj) 4 mg IV NOW PRN PRN Reason: Nausea And Vomiting Vital Signs Vital signs: Vital Signs - 8 hr 10/22/22 10:01 10/22/22 11:11 Temperature 98.8 F Pulse Rate 109 H 88 Respiratory Rate 18 18 Blood Pressure 135/104 H 124/81 Pulse Oximetry 99 100 Oxygen Delivery Method Room Air Room Air MDM - Abdominal Pain <Rufina Gonzalez PA-C - Last Filed: 10/22/22 12:17> Lab Data 10/22/22 10:23 10/22/22 10:23 Labs: Lab Results 10/22/22 10/22/22 10/22/22 Range/Units 10:15 10:23 10:23 WBC 7.1 (4.5-11.0) X10^3/uL RBC 4.67 (4.0-5.2) X10^6/uL Hgb 14.2 (12.0-16.0) g/dL Hct 40.5 (36-46) % MCV 86.9 (80-100) fL MCH 30.5 (26-34) PG MCHC 35.1 (30-36) % RDW 11.9 (11.6-14.8) % Plt Count 265 (150-400) X10^3/uL Neut % (Auto) 66.9 (50-75) % Lymph % (Auto) 21.9 L (25-40) % Prentiss % (Auto) 9.1 (3-14) % Eos % (Auto) 1.7 L (2-4) % Baso % (Auto) 0.4 (0-2) % Neut # (Auto) 4800 (7536-9555) /uL Lymph # (Auto) 1600 (0261-5815) /uL Prentiss # (Auto) 600 (0-900) /uL Eos # (Auto) 100 (0-450) /uL Baso # (Auto) 0 (0-100) /uL Sodium 139 (137-145) mmol/L Potassium 4.1 (3.4-5.1) mmol/L Chloride 105 (98-107) mmol/L Carbon Dioxide 28 (22-32) mmol/L BUN 15 (7-17) mg/dL Creatinine 0.65 (0.52-1.04) mg/dL Estimated GFR > 60 (>60) mL/min BUN/Creatinine Ratio 23.1 H (6-22) Glucose 81 (70-100) mg/dL Calcium 9.0 (8.4-10.2) mg/dL Total Bilirubin 0.6 (0.2-1.3) mg/dL AST 24 (14-36) IU/L ALT 20 (<35) IU/L Alkaline Phosphatase 47 (38-126) U/L Total Protein 7.6 (6.3-8.2) g/dL Albumin 4.5 (3.5-5.0) g/dL Globulin 3.1 (1.7-4.1) g/dL Albumin/Globulin Ratio 1.5 (1.0-2.8) Lipase 288 (23-300) U/L Urine RBC None seen (0-5/HPF) Urine WBC 30-100/hpf H (0-5/HPF) Ur Squamous Epith Cells 10-30 /hpf H (0-5/HPF) Urine Bacteria Moderate (10-30) H (None) Ur Culture Indicated? Specimen cultured Point of care testing: Point of Care Testing Test Results Negative Urine Dip Bedside Urine Glucose Negative Bedside Urine Bilirubin - Negative Bedside Urine Ketone - Negative Urine Specific [place] 1.030 Bedside Urine Occult Blood - Negative Bedside Urine pH 6.0 Bedside Urine Protein - Negative Bedside Urine Urobilinogen - Negative Bedside Urine Nitrite - Negative Bedside Urine Leukocytes ++ 125 Esterase MDM Narrative Medical decision making narrative: 37-year-old female with past medical history anxiety, depression presents to the ED with 5 days of lower abdominal pain. Concern for UTI versus pyelonephritis versus appendicitis versus diverticulitis versus versus other intra-abdominal pathology versus other. Will obtain labs, urine hCG, UA, CT abdomen pelvis. Will give IV fluids and ketorolac for symptoms. Will reassess. Labs within normal limits. CT abdomen pelvis without acute findings. Urine hCG is negative. UA positive for UTI. Prescribed antibiotics. Recommend azo for symptomatic relief. ED return precautions discussed with patient. Patient verbalized understanding. Medical records reviewed: Yes <Ethan Erwin DO - Last Filed: 10/22/22 16:31> Lab Data Labs: Lab Results 10/22/22 10/22/22 10/22/22 Range/Units 10:15 10:23 10:23 WBC 7.1 (4.5-11.0) X10^3/uL RBC 4.67 (4.0-5.2) X10^6/uL Hgb 14.2 (12.0-16.0) g/dL Hct 40.5 (36-46) % MCV 86.9 (80-100) fL MCH 30.5 (26-34) PG MCHC 35.1 (30-36) % RDW 11.9 (11.6-14.8) % Plt Count 265 (150-400) X10^3/uL Neut % (Auto) 66.9 (50-75) % Lymph % (Auto) 21.9 L (25-40) % Prentiss % (Auto) 9.1 (3-14) % Eos % (Auto) 1.7 L (2-4) % Baso % (Auto) 0.4 (0-2) % Neut # (Auto) 4800 (9202-3587) /uL Lymph # (Auto) 1600 (0459-3921) /uL Prentiss # (Auto) 600 (0-900) /uL Eos # (Auto) 100 (0-450) /uL Baso # (Auto) 0 (0-100) /uL Sodium 139 (137-145) mmol/L Potassium 4.1 (3.4-5.1) mmol/L Chloride 105 (98-107) mmol/L Carbon Dioxide 28 (22-32) mmol/L BUN 15 (7-17) mg/dL Creatinine 0.65 (0.52-1.04) mg/dL Estimated GFR > 60 (>60) mL/min BUN/Creatinine Ratio 23.1 H (6-22) Glucose 81 (70-100) mg/dL Calcium 9.0 (8.4-10.2) mg/dL Total Bilirubin 0.6 (0.2-1.3) mg/dL AST 24 (14-36) IU/L ALT 20 (<35) IU/L Alkaline Phosphatase 47 (38-126) U/L Total Protein 7.6 (6.3-8.2) g/dL Albumin 4.5 (3.5-5.0) g/dL Globulin 3.1 (1.7-4.1) g/dL Albumin/Globulin Ratio 1.5 (1.0-2.8) Lipase 288 (23-300) U/L Urine RBC None seen (0-5/HPF) Urine WBC 30-100/hpf H (0-5/HPF) Ur Squamous Epith Cells 10-30 /hpf H (0-5/HPF) Urine Bacteria Moderate (10-30) H (None) Ur Culture Indicated? Specimen cultured Point of care testing: Point of Care Testing Test Results Negative Urine Dip Bedside Urine Glucose Negative Bedside Urine Bilirubin - Negative Bedside Urine Ketone - Negative Urine Specific [place] 1.030 Bedside Urine Occult Blood - Negative Bedside Urine pH 6.0 Bedside Urine Protein - Negative Bedside Urine Urobilinogen - Negative Bedside Urine Nitrite - Negative Bedside Urine Leukocytes ++ 125 Esterase Discharge Plan Departure Patient Disposition: Home Clinical Impression: UTI (urinary tract infection) Instructions: DI for Urinary Tract Infection (UTI) Activity Restrictions/Additional Instructions: You were evaluated in the ED today for lower abdominal pain. You have been diagnosed with a urinary tract infection, for which you are being prescribed antibiotics. Please take the antibiotics as prescribed. Please continue to stay well hydrated. You may take azo which is [id number]-fdy-fxcabby for 2-3 days as needed for the discomfort. Return to the ED if you have worsening symptoms, fever, chills, persistent vomiting. Prescriptions: New cefpodoxime 200 mg tablet 200 mg PO Q12H 14 Days Qty: 28 0RF Rx Instructions: must administer with a meal/food No Action phenazopyridine [Pyridium] 100 mg tablet 100 mg PO TID PRN (Reason: pain) Qty: 7 0RF bupropion HCl 150 mg tablet extended release 24 hr 300 mg PO QAM Qty: 180 3RF clonazepam [Klonopin] 0.5 mg tablet 0.5 mg PO BID PRN (Reason: anxiety) Qty: 30 2RF Rx Instructions: administer 30 minutes before bedtime Referrals: Chepe Graf MD [Primary Care Provider] - Stand Alone Forms: Patient Portal/API <Ethan Erwin DO - Last Filed: 10/22/22 16:31> [facility]: I was immediately available in the department for consultation. Documentation has been reviewed. I agree with assessment and plan.
== END 2022-10-22 11:13 | disposition home or self-care (01) ==
PROVIDERS: Emergency Provider Student in an Organized Health Care Education/Training Program; PCP Family Medicine
DX: N39.0 Urinary tract infection, site not specified (principal)
CPT/HCPCS: 36415; 74177; 80053; 81003; 81015; 81025; 83690; 85025; 87086; 96361; 96374; 99284; J1885

== ENCOUNTER → 2022-10-24 15:15 | Outpatient (CLI) | payer OTHER, SELFPAY ==
--- NOTE | 2022-10-24 15:17 | DI.MRI.S_ITS ---
BREAST MRI OF BOTH BREASTS: 10/24/2022 CLINICAL: Bilateal breast cysts. Comparison is made to exams dated: 09/03/2021 ultrasound, 09/03/2021 mammogram, 04/16/2021 ultrasound, and 04/16/2021 mammogram - [facility]. PROCEDURE: MR BREAST BI WO/W CON INDICATIONS: radiologist recommendation 09/03/21 TECHNIQUE: The patient was placed prone in a dedicated breast imaging coil. Precontrast axial STIR and 3D FLASH without fat saturation sequences were obtained. Both before and after bolus injection of contrast, sequential 1-minute axial 3D FLASH with fat saturation sequences for 3 time points, with subtraction images and maximum intensity projections (MIP's) generated. Delayed sagittal FLASH images with fat saturation were also obtained. Computer-aided detection, including computer algorithm analysis of MRI image data for lesion detection and characterization, pharmacokinetic analysis, with further physician review for interpretation, was performed. FINDINGS: Image quality: Mild motion and misregistration artifact. There is moderate background parenchymal enhancement. Right breast: No suspicious mass, NME, or focus. Left breast: 7 x 7 x 12mm oval circumscribed mass without washout kinetics in the upper inner quadrant posterior depth (11/99, 15/50). There may be a dark internal septation. Miscellaneous: Numerous breasts cysts of varying T1 intensities, probably hemorrhagic or proteinaceous contents. No suspicious lymph nodes or other finding in the partially seen mediastinum or upper abdomen. IMPRESSION: INCOMPLETE: NEEDS ADDITIONAL IMAGING EVALUATION 7 x 7 x 12mm oval circumscribed mass without washout kinetics in the upper inner quadrant posterior depth (11/99, 15/50) of the left breast. There may be a dark internal septation favoring fibroadenoma. Second look ultrasound of the left breast recommended. No suspicious findings in the right breast, recommend continued mammographic and MRI screening. BIRADS 0 COMMENT: The imaging literature indicates that a negative contrast breast MRI examination has a high sensitivity and a moderate specificity for detecting and excluding invasive carcinomas to a detection threshold of 3-5 mm; nonetheless, appropriate clinical and mammographic follow-up are recommended. MRI is not sensitive for detecting DCIS (ductal carcinoma in situ) and may not detect large invasive neoplasms that show only minimal enhancement such as mucinous carcinoma. If there are suspicious calcifications or clinically worrisome palpable masses, then biopsy should still be considered. Invasive neoplasms can be hidden by co-existent and benign enhancement caused by mastitis, hormone therapy effects, radiation therapy, , and recent biopsy or surgery. False positive examinations can occur in a number of circumstances, including breasts that have recently been subject to invasive procedures and those that contain atypical ductal hyperplasia, hormonally stimulated glandular tissue, fat necrosis, or radial scars. This exam was interpreted at Station ID: [id number]. Electronically Signed By: Meño Ramirez M.D. lc/:10/25/2022 11:42:13 Entry: - 10/25/2022 11:42:13 letter sent: Additional Imaging Needed ACR BI-RADS Category 0: Incomplete [id number]
== END ==
PROVIDERS: PCP Family Medicine; Referring Provider Family Medicine; Visit Provider Family Medicine
DX: N63.22 Unspecified lump in the left breast, upper inner quadrant (principal); N63.13 Unspecified lump in the right breast, lower outer quadrant; N60.01 Solitary cyst of right breast; N60.02 Solitary cyst of left breast; R92.8 Other abnormal and inconclusive findings on diagnostic imaging of breast; Z91.89 Other specified personal risk factors, not elsewhere classified
CPT/HCPCS: 77049; A9579

== ENCOUNTER → 2022-10-31 08:46 | Outpatient (CLI) | payer OTHER, SELFPAY ==
--- NOTE | 2022-10-31 08:48 | DI.US.S_ITS ---
LIMITED ULTRASOUND OF LEFT BREAST AND AXILLA: 10/31/2022 CLINICAL: LEFT BREAST LESION. Comparison is made to exams dated: 10/24/2022 breast MRI, 09/03/2021 ultrasound, 09/03/2021 mammogram, and 04/16/2021 mammogram - [facility]. Color flow and Doppler ultrasound of the left breast 10-11 o'clock, and axilla regions were performed. There is a 1.2 cm x 0.6 cm x 1.3 cm oval mass with an indistinct margin in the left breast at 11 o'clock posterior depth 3 cm from the nipple. This oval mass is hypoechoic. There also is a 0.6 cm x 0.5 cm x 0.4 cm complicated cyst in the left breast at 11 o'clock posterior depth 2 cm from the nipple. Additionally, there is a 0.5 cm x 0.2 cm x 0.4 cm complicated cyst in the left breast at 11 o'clock posterior depth 3 cm from the nipple. No axillary adenopathy. IMPRESSION: SUSPICIOUS OF MALIGNANCY The 1.2 cm x 0.6 cm x 1.3 cm oval mass in the left breast at 11 o'clock posterior depth is suspicious of malignancy and corresponds with MRI findings. Recommend ultrasound-guided biopsy. Findings were discussed with the patient by Dr. Layton. The 0.6 cm x 0.5 cm x 0.4 cm complicated cyst in the left breast at 11 o'clock posterior depth is probably benign. A follow-up ultrasound in 6 months is recommended. The 0.5 cm x 0.2 cm x 0.4 cm complicated cyst in the left breast at 11 o'clock posterior depth is probably benign. A follow-up ultrasound in 6 months is recommended. This exam was interpreted at Station ID: [id number]. Electronically Signed By: Michele Guillory M.D. acr/:10/31/2022 10:44:12 letter sent: Biopsy Required Ultrasound BI-RADS: 4 Suspicious for malignancy
== END ==
PROVIDERS: PCP Family Medicine; Referring Provider Family Medicine; Visit Provider Family Medicine
DX: N63.22 Unspecified lump in the left breast, upper inner quadrant (principal); N60.02 Solitary cyst of left breast
CPT/HCPCS: 76642

== ENCOUNTER → 2022-11-06 15:44 | Outpatient (CLI) | payer OTHER, SELFPAY ==
[2022-11-08 15:13] LABS: Candida species Negative (Negative); Gardnerella vaginalis Positive (Negative); Trichomoas vaginalis Negative (Negative)
== END ==
PROVIDERS: PCP Family Medicine; Visit Provider Specialist
DX: N89.8 Other specified noninflammatory disorders of vagina (principal)
CPT/HCPCS: 87480; 87510; 87660

== ENCOUNTER → 2022-11-06 | Outpatient (CLI) | payer OTHER, SELFPAY ==
--- NOTE | 2022-11-06 | PATH_ITS ---
[facility] Accession Number: [id number] No. of containers..01 Tissue . 01 Material submitted: . breast - LEFT BREAST 11:00 3CMFN MASS . 01 Diagnosis: Left Breast, 11 o'clock, 3 cm from Nipple, Image-Guided Core Biopsy: Fibroepithelial lesion consistent with fibroadenoma. Background fibrocystic change. Negative for significant atypia and malignancy. MRV 11/08/2022 1342 Local . 01 Electronically signed: . Carmen Alvares MD, Pathologist NPI- [id number] . 01 Gross description: . The specimen is received in formalin labeled with the patient's name, , and Lt. breast 11 o'clock 3 cm FN, and consists of multiple hernandez soft tissue fragments aggregating to 1.2 x 0.7 x 0.1 cm. Inked blue, filtered, and submitted entirely in cassette A1. The specimen was removed on 11/06/2022 at 1623 hours, time in formalin not provided, cold ischemic time cannot be calculated, total fixation time is approximately 25 hours. ([id number]) /BHAKTI 11/07/2022 1002 Local . 01 Pathologist provided ICD-10: N63.20 . 01 CPT . 842340 Performed at: 01 [facility] [address], [place], [place] [id number] MD Adan Bishop MD Phone: [phone]
--- NOTE | 2022-11-06 15:07 | DI.US.S_ITS ---
PROCEDURE: US BX BREAST PERC W VAC DEVICE COMPARISON: None. INDICATIONS: left breast lump concerning for malignancy FINDINGS: IMPRESSION: Dictated by: Gm Casas M.D. on 11/07/2022 at 7:58 Approved by: Gm Casas M.D. on 11/07/2022 at 7:58
--- NOTE | 2022-11-06 15:28 | DI.US.S_ITS ---
Patient Name: QUINN OLVERA date: 1985 Sex: F Attending Physician: Homar Indications: Date: 11/12/2022 09:29 At the request of: NO HE Procedure: US bx breast perc w vac device ULTRASOUND GUIDED BIOPSY LEFT BREAST USING VACUUM DEVICE WITH MARKING DEVICE INSERTED: 11/06/2022 CLINICAL: Left breast mass. PATIENT CONSENT: Risks (minor bleeding, infection, vasovagal reaction and repeat procedure), benefits and alternatives were explained to the patient and written informed consent was obtained. Correlation is made to exams dated: 11/06/2022 mammogram, 10/31/2022 ultrasound, 10/24/2022 breast MRI, 09/03/2021 ultrasound, 09/03/2021 mammogram, and 04/16/2021 mammogram - [facility]. An ultrasound guided biopsy using real-time ultrasound was performed for the 0.5 cm x 0.2 cm x 0.4 cm mass located in the left breast at 11 o'clock posterior depth 3 cm from the nipple. The skin was prepped in the usual manner. A biopsy needle was placed adjacent to the abnormality under ultrasound guidance. Once the needle was documented to be in the correct location, a specimen was obtained using the Mammotome biopsy system. A clip was inserted into the biopsy cavity. The specimen was sent to the laboratory for pathological analysis. IMPRESSION: ULTRASOUND GUIDED BIOPSY BENIGN Ultrasound guided biopsy of the 0.5 cm x 0.2 cm x 0.4 cm mass in the left breast at 11 o'clock posterior depth 3 cm from the nipple was performed. 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 Pathology results are concordant with imaging findings. A follow-up left mammogram and an ultrasound in 6 months is recommended to demonstrate stability of this, and adjacent left breast findings. Results and recommendations will be communicated to the ordering provider's office. Continued Report - Page 2 of 2 Patient Name: QUINN OLVERA date: 1985 Sex: F Attending Physician: Homar Indications: Date: 11/12/2022 09:29 At the request of: NO HE Procedure: US bx breast perc w vac device This exam was interpreted at Station ID: [id number]. Gm Ailyn Ivy M.D. crm,krg/:11/12/2022 09:29:46
--- NOTE | 2022-11-06 16:10 | DI.MG.S_ITS ---
Patient Name: QUINN OLVERA date: 1985 Sex: F Attending Physician: Neri Indications: Date: 11/07/2022 07:55 At the request of: NO M NERI Procedure: MM diagnostic mammo unilat LT UNILATERAL LEFT DIGITAL DIAGNOSTIC MAMMOGRAM 3D/2D POST-EXCISIONAL BIOPSY: 11/06/2022 CLINICAL: Post clip. Comparison is made to exams dated: 10/31/2022 ultrasound, 10/24/2022 breast MRI, 09/03/2021 ultrasound, 09/03/2021 mammogram, and 04/16/2021 mammogram - [facility]. The left breast is extremely dense, which lowers the sensitivity of mammography (category d />75% glandular tissue). There is a marker clip in the appropriate position in the left breast at 11 o'clock posterior depth. IMPRESSION: POST PROCEDURE MAMMOGRAM FOR MARKER PLACEMENT There was a successful marker clip placement in the left breast posterior depth. Future imaging is recommended as follows: 05/02/2023 left mammogram and an ultrasound. Based on Tyrer-Cuzick model (a risk assessment model), the patient's lifetime risk is 20.0% and her 10 year risk is 2.2%. If a patient has an elevated risk, a more comprehensive evaluation should be considered and/or a referral to a genetic counselor. The [place] [employer], [place] [employer], and NCCN Guidelines advise the consideration of Breast MRI as an adjunct to screening mammography in patients whose Lifetime risk to develop breast cancer is 20% or higher. This exam was interpreted at Station ID: [id number]. Continued Report - Page 2 of 2 Patient Name: QUINN OLVERA date: 1985 Sex: F Attending Physician: Neri Indications: Date: 11/07/2022 07:55 At the request of: NO HE Procedure: MM diagnostic mammo unilat LT NOTE: For mammograms, a report in lay terms will be sent to the patient. Approximately 15% of breast malignancies will not be visualized mammographically. In the management of a palpable breast mass, a negative mammogram must not discourage biopsy of a clinically suspicious lesion. Electronically Signed By: Gm Casas M.D. crm/:11/07/2022 07:55:43 ACR BI-RADS Category Post-procedure mammogram for marker placement
== END ==
LOC: US 15:06
PROVIDERS: PCP Family Medicine; Referring Provider Family Medicine; Visit Provider Family Medicine
DX: D24.2 Benign neoplasm of left breast; N89.8 Other specified noninflammatory disorders of vagina
CPT/HCPCS: 19083; 77065; 87480; 87510; 87660; G0279

== ENCOUNTER 2022-11-08 22:04 | Emergency (ER) | payer OTHER, SELFPAY ==
[2022-11-08 22:10] VITALS: BP 124/90; PULSE 91; RESP 18; TEMP 36.6; O2SAT 100; BMI 18.4
--- NOTE | 2022-11-09 01:09 | PC.NURSE ---
Pt c/o ongoing, worsening lower pelvic pain with white vaginal discharge and delayed periods. Pt has been to ER on October 22 for similare symptoms. Recently was prescribed Nuvessa 1.3% hernan gel 5g by OBGYN [facility]. Next appointment with [facility] is November 21.
[2022-11-09 01:15] VITALS: BP 124/90; PULSE 81; RESP 16; O2SAT 100
--- NOTE | 2022-11-09 01:24 | ED.GENADULT ---
HPI - General Adult General Chief complaint: Urogenital-Female Stated complaint: Pelvic pain Time Seen by Provider: 11/09/22 00:54 Source: patient Mode of arrival: Ambulatory History of Present Illness HPI narrative: 37-year-old woman presents with pelvic pain and vaginal discharge. This has been an ongoing problem for last month. She was initially thought to have urinary tract infection and treated with 5 days of Macrobid that did not help. On October 21 she was seen in the emergency department CT scan did not show any specific pathology, urine testing suggested urinary tract infection and she was treated with 14 days of cefpodoxime with culture eventually growing nothing. She was then seen by her OBGYN in on November 06 was diagnosed with Gardnerella vaginalis and was given a prescription for vaginal metronidazole which apparently has to be specifically ordered and is not going to be available at pharmacy until later next week. In the meantime she continues to have significant pelvic pain is continued to be quite anxious is worried that she has pelvic inflammatory disease and comes in for additional evaluation. She describes it as a deep ache in her pelvis without significant dysuria, slight frequency slight vaginal discharge that is yellowish with a mild odor, no constipation or diarrhea. Significant increased stressors over the last month, current menstrual cycle is late. She is not had intercourse for the last month so is not able to comment on dyspareunia Related Data Previous Rx's Medication Instructions Recorded phenazopyridine 100 mg tablet 100 mg PO TID PRN pain 6 doses #7 11/27/21 (Pyridium) tabs bupropion HCl 150 mg 24 hr tablet, 300 mg PO QAM #180 tabs 10/03/22 extended release clonazepam 0.5 mg tablet (Klonopin) 0.5 mg PO BID PRN anxiety #30 tabs 10/07/22 metronidazole 1.3 % (65 mg/5 gram) 1 appful vaginal BEDTIME Bacterial 11/08/22 vaginal gel infection of the vagina 1 dose #5 grams metronidazole 500 mg tablet 500 mg PO TID #15 tabs 11/09/22 Allergies Allergy/AdvReac Type Severity Reaction Status Date / Time doxycycline AdvReac Intermediate numbness Verified 10/22/22 10:05 in hands Review of Systems Review of Systems Narrative: Pertinent positive and negative findings as per HPI Patient History Medical History Anxiety Depression Encounter for wellness examination in adult (07/20/20) H/O: depression Mixed anxiety and depressive disorder Muscle twitching Surgical History H/O LEEP (~2016) H/O rhinoplasty Social History Smoking Status: Never smoker Smoking Status: Never smoker alcohol intake frequency: holidays/special occasions only Substance Use Type: does not use Exam Initial Vital Signs Initial Vital Signs: Vital Signs Temperature 98 F 11/08/22 22:10 Pulse Rate 91 H 11/08/22 22:10 Respiratory Rate 18 11/08/22 22:10 Blood Pressure 124/90 11/08/22 22:10 Pulse Oximetry 100 11/08/22 22:10 Oxygen Delivery Method Room Air 11/08/22 22:10 General: Healthy appearing, anxious, in moderate pain Able to give a complete and coherent history. Well-nourished well-developed HEENT: Moist mucous membranes, normal sclera with reactive pupils, Respiratory: Lungs are clear to auscultation, no wheezing no rales no rhonchi. Full and symmetrical air movement Cardiac: Regular rate and rhythm no murmurs no bruits Abdomen: Soft, nontender, good bowel tones, no flank pain Pelvic exam: External genitalia is within normal limits minimal vaginal discharge no erythema no cervical motion tenderness and uterus is not enlarged. No adnexal tenderness. There is some minor discomfort with pressure on the anterior vaginal wall/posterior bladder wall. Skin: Warm and dry, no rashes Neurologic: Grossly neurologically intact with no obvious asymmetries or abnormalities Extremities: No trauma, well perfused Psych: Cooperative, appropriate insight and affect Course Vital Signs Vital signs: Vital Signs - 8 hr 11/08/22 22:10 11/09/22 01:15 11/09/22 01:28 Temperature 98 F Pulse Rate 91 H 81 80 Respiratory Rate 18 16 16 Blood Pressure 124/90 124/90 117/80 Pulse Oximetry 100 100 98 Oxygen Delivery Method Room Air Room Air Room Air Medical Decision Making Lab Data Labs: Point of Care Testing Test Results Negative Urine Dip Bedside Urine Glucose Negative Bedside Urine Bilirubin - Negative Bedside Urine Ketone - Negative Urine Specific [place] 1.005 Bedside Urine Occult Blood - Negative Bedside Urine pH 6 Bedside Urine Protein - Negative Bedside Urine Urobilinogen - Negative Bedside Urine Nitrite - Negative Bedside Urine Leukocytes - Negative Esterase Point of care testing: Point of Care Testing Test Results Negative Urine Dip Bedside Urine Glucose Negative Bedside Urine Bilirubin - Negative Bedside Urine Ketone - Negative Urine Specific [place] 1.005 Bedside Urine Occult Blood - Negative Bedside Urine pH 6 Bedside Urine Protein - Negative Bedside Urine Urobilinogen - Negative Bedside Urine Nitrite - Negative Bedside Urine Leukocytes - Negative Esterase MDM Narrative Medical decision making narrative: CC: 1 month of continued pelvic pain, acute issue uncertain diagnosis Complicating co-morbidities: Anxiety, multiple treatments for urinary tract infection with no cultures positive, recent breast biopsy so nonsteroidals are not able to be taken for another couple of days, increasing pelvic pain Data collected from: patient, Medical records reviewed: ER notes, touring production manager 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 Pertinent findings: test is negative Point of care urine testing is negative today Gonorrhea and chlamydia testing is added to urine Imaging studies independently reviewed: CT scan of the abdomen from October 22 is reviewed -no significant pathology identified Treatments: Oral metronidazole Discussion: 37-year-old woman with pelvic discomfort for the last month. No evidence for urinary tract infection. With 14 days of cefpodoxime that should have adequately treated any gonorrhea. She does have bacterial vaginosis and I have initiated oral metronidazole as apparently vaginal metronidazole is back ordered. Given the deeper pelvic pain I think that the oral option may be a better choice anyway. We will let her know if gonorrhea and chlamydia testing do returned positive. She is a follow-up appointment with Gynecology on November 20. I am concerned that she may be developing interstitial cystitis and this will clearly need much further evaluation and follow-up with touring production manager. At this point there is no evidence of abscess, torsion, pelvic inflammatory disease, endomyometritis or alternate explanation that would require further workup, additional imaging or hospitalization at this time. We did discuss pain management. She is reluctant to use any narcotics which is quite appropriate. She is still having some bleeding from a recent breast biopsy 48 hours ago. Recommended at least another 48 hours before she restart ibuprofen for pain control. Tylenol certainly can be used. She is given 4 tablets of Percocet to at least help with sleep over the next 1-2 nights. Questions are answered and she is safe for discharge home Discharge Plan Departure Patient Disposition: Home Clinical Impression: Pelvic pain, Bacterial vaginosis Instructions: DI for Bacterial Vaginosis Activity Restrictions/Additional Instructions: Thank you for coming in tonight I am sorry that you are still suffering with this pain. I am not seeing any evidence for urinary tract infection and your urine culture from October 22 does not show a urinary tract infection. Today I have had gonorrhea and chlamydia testing to your urine. With the 14 days of cefpodoxime that you completed after your October 22 visit, gonorrhea should be adequately treated multiple times over. Your pelvic exam today does not suggest acute pelvic inflammatory disease, significant ovarian pathology or other concerns. Your discharge is quite mild. We do know that you have bacterial vaginosis. Typically this does not cause deep pelvic pain like you are describing. I have given you a prescription for 5 days of metronidazole orally as the vaginal preparation is on back order. [facility] By Friday he should be safe to again use nonsteroidals. Using 400 mg of ibuprofen (2 [id number] pills) and 1 Tylenol every 6 hours can be very helpful in controlling pain. I have given you a couple of tablets of Percocet to mixed with Tylenol for the next 1-2 days for severe pain. Please make sure you keep your gynecology appointment on November 20 If you find that you are getting worse or develop any new symptoms, please feel free to return to the emergency department for further evaluation. Prescriptions: New metronidazole 500 mg tablet 500 mg PO TID Qty: 15 0RF No Action phenazopyridine [Pyridium] 100 mg tablet 100 mg PO TID PRN (Reason: pain) Qty: 7 0RF bupropion HCl 150 mg tablet extended release 24 hr 300 mg PO QAM Qty: 180 3RF metronidazole 1.3 % (65 mg/5 gram) gel 1 appful vaginal BEDTIME Qty: 5 0RF clonazepam [Klonopin] 0.5 mg tablet 0.5 mg PO BID PRN (Reason: anxiety) Qty: 30 2RF Rx Instructions: administer 30 minutes before bedtime Referrals: Chepe Graf MD [Primary Care Provider] - Stand Alone Forms: Patient Portal/API
[2022-11-09 01:27] VITALS: BP 117/80; PULSE 83; RESP 18; O2SAT 100
[2022-11-09 01:28] VITALS: BP 117/80; PULSE 80; RESP 16; O2SAT 98
[2022-11-09] MEDS: OXYCODONE/APAP 5/325 PREPACK 1 BOTTLE MISC (02:55)
[2022-11-09] MEDS: metroNIDAZOLE 500 MG TABLET PO (02:55)
[2022-11-09 03:08] VITALS: BP 120/80; PULSE 80; RESP 18; O2SAT 100
[2022-11-09 04:14] LABS: Urine N gonorrhoeae NOT DETECTED
[2022-11-09 04:15] LABS: Urine Chlamydia NOT DETECTED
== END 2022-11-09 03:10 | disposition home or self-care (01) ==
PROVIDERS: Emergency Provider Emergency Medicine; PCP Family Medicine
DX: R10.2 Pelvic and perineal pain (principal); N76.0 Acute vaginitis
CPT/HCPCS: 81003; 81025; 87491; 87591; 99283

== ENCOUNTER → 2022-12-02 11:18 | Outpatient (CLI) | payer OTHER, SELFPAY ==
[2022-12-03 14:10] LABS: Candida species Negative (Negative); Gardnerella vaginalis Positive (Negative); Trichomoas vaginalis Negative (Negative)
== END ==
PROVIDERS: PCP Family Medicine; Visit Provider Specialist
DX: N89.8 Other specified noninflammatory disorders of vagina (principal)
CPT/HCPCS: 87480; 87510; 87660

== ENCOUNTER 2023-02-10 17:54 | Emergency (ER) | payer OTHER, SELFPAY ==
--- NOTE | 2023-02-10 18:09 | ED.GENADULT ---
HPI - General Adult General Chief complaint: Arrhythmia/Palpitations Stated complaint: Heart palpitation/dizzyness/sob/covid+ Time Seen by Provider: 02/10/23 18:09 History of Present Illness HPI narrative: 37F nonsmoker without significant chronic medical history presents with a chief complaint of an episode of palpitations and racing heart that started this evening. She denies much in the way of chest pain or significant shortness of breath. She has no hemoptysis. She is had no fever or chills. She denies nausea, vomiting or diarrhea. About a week ago she was diagnosed with COVID and since then has been having headaches that have been rather significant at night. She also complains of a headache that is typical of what she is been suffering. She takes Motrin twice daily with little to no relief. She denies any trauma or injury. She denies neck pain. She has no blurred vision or trouble with speech. She states taht just prior she had traveled from [place] Related Data Previous Rx's Medication Instructions Recorded bupropion HCl 150 mg 24 hr tablet, 300 mg (2 x 150 mg) PO QAM #180 10/03/22 extended release tabs clonazepam 0.5 mg tablet (Klonopin) 0.5 mg PO BID PRN anxiety #30 tabs 10/07/22 metronidazole 1.3 % (65 mg/5 gram) 1 appful vaginal BEDTIME Bacterial 11/08/22 vaginal gel infection of the vagina 1 dose #5 grams metronidazole 500 mg tablet 500 mg PO TID Bacterial infection 12/04/22 #21 tabs Allergies Allergy/AdvReac Type Severity Reaction Status Date / Time doxycycline AdvReac Intermediate numbness Verified 11/21/22 09:50 in hands Review of Systems Review of Systems Narrative: GENERAL: Denies chills, fatigue, malaise, fever, sweats. HEENT: Denies sinus pain, ear pain, sore throat, difficulty swallowing, dizziness. RESPIRATORY: Denies dyspnea, cough, wheezing, hemoptysis, sputum. CARDIOVASCULAR: See HPI GASTROINTESTINAL: Denies nausea, vomiting, abdominal pain, diarrhea, constipation, melena. : Denies dysuria, frequency, incontinence, hematuria, urinary retention. MUSCULOSKELETAL: denies weakness, joint pain, or bony pain SKIN: Denies rash, skin lesions, or other NEUROLOGIC: Denies weakness, headache, numbness, change in speech, confusion, seizures, incoordination. PSYCHIATRIC: No concerning psychosocial issues. 12 point review of systems is negative except for those stated above Patient History Medical History Mixed anxiety and depressive disorder Encounter for wellness examination in adult (07/20/20) Muscle twitching Anxiety Depression H/O: depression Surgical History H/O rhinoplasty H/O LEEP (~2016) Social History Smoking Status: Never smoker Smoking Status: Never smoker alcohol intake frequency: holidays/special occasions only Substance Use Type: does not use Exam Narrative Exam Narrative: GENERAL: [37] year old patient appears stated age. Well-developed patient, in mild distress. HEAD: Atraumatic. Normocephalic. EYES: Pupils equal round and reactive. Extraocular motions intact. No scleral icterus. No injection or drainage. ENT: Nose without bleeding, purulent drainage. Throat without erythema, tonsillar hypertrophy or exudate. Airway patent. NECK: Trachea midline. Non tender CARDIOVASCULAR: Regular rate and rhythm without murmurs, gallops, or rubs. RESPIRATORY: Clear to auscultation. Breath sounds equal bilaterally. No wheezes, rales, or rhonchi. GASTROINTESTINAL: Abdomen soft, non-tender, nondistended. EXTREMITIES: No edema or joint tenderness. BACK: Nontender without deformity or crepitance. No flank tenderness. NEURO: AOx3. SKIN: No rash or erythema of visible areas Initial Vital Signs Initial Vital Signs: Vital Signs Temperature 99.0 F 02/10/23 18:10 Pulse Rate 100 H 02/10/23 18:10 Respiratory Rate 18 02/10/23 18:10 Blood Pressure 126/103 H 02/10/23 18:10 Pulse Oximetry 99 02/10/23 18:10 Oxygen Delivery Method Room Air 02/10/23 18:10 Course Orders Ordered: ED Orders 02/10/23 18:09 EKG-12 Lead Stat 02/10/23 18:30 Complete Blood Count AUTO DIFF Stat Comprehensive Metabolic Panel Stat D Dimer Stat Magnesium Stat TSH w/ Reflex to FT4 Stat Troponin & CK Cardiac Panel Stat 02/10/23 23:56 CT angio chest PE protocol Stat Discontinued Medications Sodium Chloride (Normal Saline 0.9%) 1,000 mls @ 1,000 mls/hr IV BOLUS ONE Stop: 02/10/23 19:08 Last Infusion: 02/10/23 23:14 Dose: Infused Documented By: Admin: 02/10/23 21:46 Dose: 1,000 mls/hr Documented By: SUSIE Sodium Chloride (Normal Saline 0.9%) 1,000 mls @ 1,000 mls/hr IV BOLUS ONE Stop: 02/11/23 00:55 Last Admin: 02/11/23 00:09 Dose: 1,000 mls/hr Documented By: SUSIE Ketorolac Tromethamine (Ketorolac 30 Mg/Ml Vial) 15 mg IV NOW ONE Stop: 02/10/23 23:57 Last Admin: 02/11/23 00:09 Dose: 15 mg Documented By: SUSIE Vital Signs Vital signs: Vital Signs - 8 hr 02/10/23 18:10 02/10/23 21:54 02/10/23 22:00 Temperature 99.0 F Pulse Rate 100 H 89 86 Respiratory Rate 18 13 14 Blood Pressure 126/103 H Pulse Oximetry 99 100 100 Oxygen Delivery Method Room Air Room Air 02/10/23 22:30 02/10/23 23:00 02/10/23 23:30 Temperature Pulse Rate 92 H 90 94 H Respiratory Rate 17 12 13 Blood Pressure Pulse Oximetry 100 100 100 Oxygen Delivery Method 02/11/23 00:00 02/11/23 00:26 02/11/23 00:26 Temperature Pulse Rate 94 H 92 H Respiratory Rate 13 15 Blood Pressure 118/87 Pulse Oximetry 100 100 Oxygen Delivery Method Room Air 02/11/23 00:30 02/11/23 01:00 02/11/23 01:30 Temperature Pulse Rate 87 87 96 H Respiratory Rate 17 18 12 Blood Pressure Pulse Oximetry 100 100 100 Oxygen Delivery Method Medical Decision Making Lab Data 02/10/23 18:30 02/10/23 18:30 Labs: Lab Results 02/10/23 Range/Units 18:30 WBC 6.6 (4.5-11.0) X10^3/uL RBC 4.57 (4.0-5.2) X10^6/uL Hgb 13.9 (12.0-16.0) g/dL Hct 39.9 (36-46) % MCV 87.3 (80-100) fL MCH 30.4 (26-34) PG MCHC 34.8 (30-36) % RDW 11.7 (11.6-14.8) % Plt Count 288 (150-400) X10^3/uL Neut % (Auto) 61.2 (50-75) % Lymph % (Auto) 28.2 (25-40) % [place] % (Auto) 8.6 (3-14) % Eos % (Auto) 1.5 L (2-4) % Baso % (Auto) 0.5 (0-2) % Neut # (Auto) 4000 (7200-9175) /uL Lymph # (Auto) 1900 (8549-0749) /uL [place] # (Auto) 600 (0-900) /uL Eos # (Auto) 100 (0-450) /uL Baso # (Auto) 0 (0-100) /uL D-Dimer 500 (<500) ng/ml Sodium 139 (137-145) mmol/L Potassium 4.1 (3.4-5.1) mmol/L Chloride 99 (98-107) mmol/L Carbon Dioxide 28 (22-32) mmol/L BUN 11 (7-17) mg/dL Creatinine 0.70 (0.52-1.04) mg/dL Estimated GFR > 60 (>60) mL/min BUN/Creatinine Ratio 15.7 (6-22) Glucose 102 H (70-100) mg/dL Calcium 9.4 (8.4-10.2) mg/dL Magnesium 2.0 (1.6-2.3) mg/dL Total Bilirubin 0.2 (0.2-1.3) mg/dL AST 23 (14-36) IU/L ALT 20 (<35) IU/L Alkaline Phosphatase 49 (38-126) U/L Total Creatine Kinase 41 (30-135) U/L Troponin I < 0.012 (0.01-0.034) ng/mL Total Protein 8.0 (6.3-8.2) g/dL Albumin 4.6 (3.5-5.0) g/dL Globulin 3.4 (1.7-4.1) g/dL Albumin/Globulin Ratio 1.4 (1.0-2.8) TSH 0.90 (0.47-4.68) uIU/mL Point of Care Testing Test Results Negative Urine Dip Bedside Urine Glucose Negative Bedside Urine Bilirubin - Negative Bedside Urine Ketone - Negative Urine Specific [place] 1.010 Bedside Urine Occult Blood - Negative Bedside Urine pH 6.0 Bedside Urine Protein - Negative Bedside Urine Urobilinogen - Negative Bedside Urine Nitrite - Negative Bedside Urine Leukocytes - Negative Esterase Point of care testing: Point of Care Testing Test Results Negative Urine Dip Bedside Urine Glucose Negative Bedside Urine Bilirubin - Negative Bedside Urine Ketone - Negative Urine Specific [place] 1.010 Bedside Urine Occult Blood - Negative Bedside Urine pH 6.0 Bedside Urine Protein - Negative Bedside Urine Urobilinogen - Negative Bedside Urine Nitrite - Negative Bedside Urine Leukocytes - Negative Esterase MDM Narrative Medical decision making narrative: [37] year old patient presents with palpitations and headahce Multiple etiologies for patient's symptoms considered including, but not limited to: [post covid vs. pneumonia vs. PE vs. other] Prior Charts reviewed in our EMR Primary Historian: patient Labs reviewed and interpreted by myself: No leukocytosis or left shift, no signs of anemia, D-dimer cutoff of 500 Imaging reviewed: CT angiogram demonstrates Patient's history and physical exam are largely reassuring. Heart rate has been in the upper 90s, sinus and without evidence of ectopy or arrhythmia. Patient demonstrates slow improvement after fluids. We did discuss that COVID General we will have an elevated D-dimer and that historically algorithm would require a dimer over 1000 to pursue pulmonary embolism but given her recent travel as well we elect to perform CT angiogram Patient's symptoms improved over duration of stay with above-stated therapies. Findings and discharge diagnosis discussed with patient/family followed by verbalization of understanding Return precautions discussed with patient/family whom verbalize understanding of diagnosis and plan Discharge Plan Departure Patient Disposition: Home Clinical Impression: Headache, Heart palpitations Instructions: DI for Headache, DI for Palpitations Activity Restrictions/Additional Instructions: *You have been diagnosed with [ Headache and palpitations. As we discussed your history and physical exam are reassuring as are labs, EKG and imaging. There is no evidence of significant electrolyte abnormality, blood clot or other significant diagnosis that would require a specific or immediate intervention] *What to do: *Take medications as directed *Follow up with your primary care provider in 2-3 days, call for an appointment. Let them know you were seen in the Emergency Department and that we ask that you be seen in follow up *Return to ER if you should have any new, worsening or concerning symptoms, such as [ fever > 101F, neck pain or stiffness, vomiting, confusion, seizure, focal weakness, vision change, speech deficit or other concerning symptoms ] Prescriptions: No Action bupropion HCl 150 mg tablet extended release 24 hr 300 mg PO QAM Qty: 180 3RF metronidazole 1.3 % (65 mg/5 gram) gel 1 appful vaginal BEDTIME Qty: 5 0RF metronidazole 500 mg tablet 500 mg PO TID Qty: 21 0RF clonazepam [Klonopin] 0.5 mg tablet 0.5 mg PO BID PRN (Reason: anxiety) Qty: 30 2RF Rx Instructions: administer 30 minutes before bedtime Referrals: Chepe Graf MD [Primary Care Provider] - Stand Alone Forms: Patient Portal/API
[2023-02-10 18:10] VITALS: BP 126/103; PULSE 100; RESP 18; TEMP 37.2; O2SAT 99; BMI 18.4
[2023-02-10 18:57] LABS: Add Manual Diff / Slide Review NO; Basophils Absolute Auto 0 /uL (0-100); Basophils Percent Auto 0.5 % (0-2); Eosinophils Absolute Auto 100 /uL (0-450); Eosinophils Percent Auto 1.5 % (2-4); Hematocrit 39.9 % (36-46); Hemoglobin 13.9 g/dL (12.0-16.0); Lymphocytes Absolute Auto 1900 /uL (1100-4500); Lymphocytes Percent Auto 28.2 % (25-40); Mean Corpuscular HGB Conc 34.8 % (30-36); Mean Corpuscular Hemoglobin 30.4 PG (26-34); Mean Corpuscular Volume 87.3 fL (80-100); Monocytes Absolute Auto 600 /uL (0-900); Monocytes Percent Auto 8.6 % (3-14); Neutrophils Absolute Auto 4000 /uL (1500-7000); Neutrophils Percent Auto 61.2 % (50-75); Platelet Count 288 X10^3/uL (150-400); Red Blood Cell Count 4.57 X10^6/uL (4.0-5.2); Red Cell Distribution Width 11.7 % (11.6-14.8); White Blood Cell Count 6.6 X10^3/uL (4.5-11.0)
[2023-02-10 19:09] LABS: D Dimer 500 ng/ml (<500)
[2023-02-10 19:12] LABS: Alanine Aminotransferase 20 IU/L (<35); Albumin 4.6 g/dL (3.5-5.0); Albumin Globulin Ratio 1.4 (1.0-2.8); Alkaline Phosphatase 49 U/L (38-126); Aspartate Aminotransferase 23 IU/L (14-36); BUN Creatinine Ratio 15.7 (6-22); Bilirubin Total 0.2 mg/dL (0.2-1.3); Blood Urea Nitrogen 11 mg/dL (7-17); Calcium 9.4 mg/dL (8.4-10.2); Carbon Dioxide 28 mmol/L (22-32); Chloride 99 mmol/L (98-107); Creatine Kinase 41 U/L (30-135); Estimated Glomerular Filt Rate > 60 mL/min (>60); Globulin 3.4 g/dL (1.7-4.1); Glucose 102 mg/dL (70-100); HEMOLYSIS < 15 (0-50); Potassium 4.1 mmol/L (3.4-5.1); Sodium 139 mmol/L (137-145)
[2023-02-10 19:23] LABS: Troponin I < 0.012 ng/mL (0.01-0.034)
[2023-02-10] MEDS: SODIUM CHLORIDE 0.9% 1,000 ML 1000 ML IV (21:46)
[2023-02-10 21:54] VITALS: PULSE 89; RESP 13; O2SAT 100
[2023-02-10 22:00] VITALS: PULSE 86; RESP 14; O2SAT 100
[2023-02-10 22:30] VITALS: PULSE 92; RESP 17; O2SAT 100
[2023-02-10 23:00] VITALS: PULSE 90; RESP 12; O2SAT 100
[2023-02-10 23:30] VITALS: PULSE 94; RESP 13; O2SAT 100
--- NOTE | 2023-02-10 23:56 | DI.CT.S_ITS ---
PROCEDURE: CT ANGIO CHEST PE PROTOCOL INDICATIONS: tachycardia / recent travel TECHNIQUE: After the administration of intravenous contrast, 2 mm thick sections acquired from the pulmonary apices to the posterior costophrenic angles. 3-dimensional maximum intensity projection (MIP) coronal and sagittal reformats were then acquired through the thorax. For radiation dose reduction, the following was used: automated exposure control, adjustment of mA and/or kV according to patient size. COMPARISON: None. FINDINGS: Image quality: Excellent. Pulmonary arteries: Pulmonary arteries are normal in size, and demonstrate no intraluminal filling defects to suggest central pulmonary embolism. Lungs and pleura: Lungs demonstrate biapical irregular septal thickening. Mild bilateral upper lobe pleural irregularity. No mid to lower lung septal thickening or reticulation. No fibrotic changes. No acute consolidations or ground-glass opacities. No pleural effusion or pleural plaquing. There is a juxta fissural angulated nodule in the right middle lobe, presumably a lymph node.. No other focal nodule or mass. Mediastinum: Heart size is normal, without pericardial effusion. No mediastinal or hilar adenopathy. Thoracic aorta is normal in caliber and enhancement. Esophagus is normal in caliber, without hiatal hernia. There is mild circumferential esophageal wall thickening. Bones and chest wall: No suspicious bony lesions. Ribs and thoracic spine appear intact throughout. Thyroid gland is normal. No axillary or supraclavicular adenopathy. Abdomen: Visualized upper abdominal solid organs appear normal in the early arterial phase of enhancement. IMPRESSION: 1. No pulmonary embolus. 2. Mild circumferential esophageal wall thickening suggesting esophagitis. Correlate clinically. 3. Bilateral biapical pleural and interstitial thickening, nonspecific, likely post infectious or inflammatory. No acute pulmonary parenchymal pathology. Dictated by: Jeanie Ivy M.D. on 02/11/2023 at 1:50 Approved by: Jeanie Ivy M.D. on 02/11/2023 at 1:55
[2023-02-11] VITALS: PULSE 94; RESP 13; O2SAT 100
[2023-02-11] MEDS: KETOROLAC 30 MG/ML VIAL 15 MG IV (00:09)
[2023-02-11] MEDS: SODIUM CHLORIDE 0.9% 1,000 ML 1000 ML IV (00:09)
[2023-02-11 00:26] VITALS: BP 118/87; PULSE 92; RESP 15; O2SAT 100
[2023-02-11 00:30] VITALS: PULSE 87; RESP 17; O2SAT 100
[2023-02-11 01:00] VITALS: PULSE 87; RESP 18; O2SAT 100
[2023-02-11 01:30] VITALS: PULSE 96; RESP 12; O2SAT 100
[2023-02-11 02:00] VITALS: PULSE 96; RESP 12; O2SAT 100
== END 2023-02-11 02:20 | disposition home or self-care (01) ==
PROVIDERS: Emergency Provider Emergency Medicine; PCP Family Medicine
DX: R00.2 Palpitations (principal); R51.9 Headache, unspecified
CPT/HCPCS: 71275; 80053; 81003; 81025; 82550; 83735; 84443; 84484; 85025; 85379; 93005; 93010; 96361; 96374; 99284; J1885; Q9967

== ENCOUNTER → 2023-06-05 11:23 | Outpatient (CLI) | payer OTHER, SELFPAY ==
--- NOTE | 2023-06-05 11:24 | DI.MRI.S_ITS ---
BREAST MRI OF BOTH BREASTS: 06/05/2023 CLINICAL: Follow up from 11/10 MRI. Comparison is made to exams dated: 11/06/2022 ultrasound biopsy, 11/06/2022 mammogram, 10/31/2022 ultrasound, and 10/24/2022 breast MRI - [facility]. PROCEDURE: MR BREAST BI WO/W CON INDICATIONS: recommended by radiology f/u from 10/2022 breast MRI TECHNIQUE: The patient was placed prone in a dedicated breast imaging coil. Precontrast axial STIR and 3D FLASH without fat saturation sequences were obtained. Both before and after bolus injection of contrast, sequential 1-minute axial 3D FLASH with fat saturation sequences for 3 time points, with subtraction images and maximum intensity projections (MIP's) generated. Delayed sagittal FLASH images with fat saturation were also obtained. Computer-aided detection, including computer algorithm analysis of MRI image data for lesion detection and characterization, pharmacokinetic analysis, with further physician review for interpretation, was performed. FINDINGS: Image quality: Moderate to severe motion artifact. The breasts are extremely dense. There is marked background parenchymal enhancement. Right breast: No suspicious mass, non-mass enhancement, or focus. Left breast: In the upper inner quadrant posterior depth, there is again seen a 7 mm oval circumscribed mass with a possible dark internal septation. Susceptibility artifact is seen here corresponding to recent biopsy. 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 Miscellaneous: On T2 weighted images, numerous simple and complicated cysts are seen. No pathologic lymph nodes by size or morphologic characteristics in in field of view. The axilla are not fully imaged on this study. No significant abnormality in the partially visualized upper abdomen or anterior mediastinum. IMPRESSION: INCOMPLETE: NEEDS ADDITIONAL IMAGING EVALUATION Significantly limited MRI due to marked background enhancement and moderate to severe motion artifact. Left breast posterior depth upper inner quadrant oval circumscribed mass corresponding to previously biopsied fibroadenoma with fibrocystic changes is stable to slightly decreased in size compared to imaging from October of 2022. This is probably benign. Mammogram and ultrasound are sufficient for follow-up of this lesion, which are still pending following October 2022 biopsy. Recommend also continued supplemental annual MRI screening given patient's elevated lifetime risk. BIRADS 0 COMMENT: The imaging literature indicates that a negative contrast breast MRI examination has a high sensitivity and a moderate specificity for detecting and excluding invasive carcinomas to a detection threshold of 3-5 mm; nonetheless, appropriate clinical and mammographic follow-up are recommended. MRI is not sensitive for detecting DCIS (ductal carcinoma in situ) and may not detect large invasive neoplasms that show only minimal enhancement such as mucinous carcinoma. If there are suspicious calcifications or clinically worrisome palpable masses, then biopsy should still be considered. Invasive neoplasms can be hidden by co-existent and benign enhancement caused by mastitis, hormone therapy effects, radiation therapy, , and recent biopsy or surgery. False positive examinations can occur in a number of circumstances, including breasts that have recently been subject to invasive procedures and those that contain atypical ductal hyperplasia, hormonally stimulated glandular tissue, fat necrosis, or radial scars. This exam was interpreted at Station ID: [id number]. Electronically Signed By: Meño Ramirez M.D. lc/:06/05/2023 13:06:24 letter sent: Followup Recommended ACR BI-RADS Category 0: Incomplete [id number]
== END ==
PROVIDERS: PCP Family Medicine; Referring Provider Family Medicine; Visit Provider Family Medicine
DX: N63.13 Unspecified lump in the right breast, lower outer quadrant (principal); D24.2 Benign neoplasm of left breast; N60.02 Solitary cyst of left breast; N60.01 Solitary cyst of right breast; Z91.89 Other specified personal risk factors, not elsewhere classified
CPT/HCPCS: 77049; A9579

== ENCOUNTER → 2023-07-03 | Outpatient (CLI) | payer OTHER, SELFPAY ==
--- NOTE | 2023-07-03 08:46 | DI.US.S_ITS ---
PROCEDURE: BREAST LT LIMITED COMPARISON: [facility], BREAST LT LIMITED, 10/31/2022, 9:03. INDICATIONS: 6mo follow up FINDINGS: IMPRESSION: Dictated by: Erica Randolph M.D. on 07/03/2023 at 10:46 Approved by: Erica Randolph M.D. on 07/03/2023 at 11:00
--- NOTE | 2023-07-03 08:46 | DI.MG.S_ITS ---
BILATERAL DIGITAL DIAGNOSTIC MAMMOGRAM 3D/2D SHORT-TERM FOLLOW-UP: 07/03/2023 CLINICAL: Short term follow up of the left breast, due for bilateral imaging. Comparison is made to exams dated: 06/05/2023 breast MRI, 11/06/2022 ultrasound biopsy, 10/31/2022 ultrasound, and 11/06/2022 mammogram - [facility]. Both breasts are extremely dense, which lowers the sensitivity of mammography (category d />75% glandular tissue). There is a biopsy clip in the left breast. No significant masses, calcifications, or other findings are seen in either breast. IMPRESSION: INCOMPLETE: NEEDS ADDITIONAL IMAGING EVALUATION Status post left breast needle biopsy. No mammographic evidence of malignancy. Left breast ultrasound is recommended for further evaluation of previously biopsied mass and is scheduled to immediately follow this examination. Based on the Tyrer Cuzick model (a risk assessment model) the patient's lifetime risk is 19.9% and her 10 year risk is 2.4%. According to the ACR, ACS, and NCCN guidelines, an annual breast MRI exam along with mammogram is recommended if the patient's lifetime risk is 20% or greater. This exam was interpreted at Station ID: [id number]. NOTE: For mammograms, a report in lay terms will be sent to the patient. Approximately 15% of breast malignancies will not be visualized mammographically. In the management of a palpable breast mass, a negative mammogram must not discourage biopsy of a clinically suspicious lesion. Electronically Signed By: Erica Ranodlph M.D., PH.D eb/:07/03/2023 09:43:26 ACR BI-RADS Category 0: Incomplete [id number]
--- NOTE | 2023-07-03 10:40 | DI.US.S_ITS ---
Patient Name: QUINN OLVERA date: 1985 Sex: F Attending Physician: Homar Indications: Date: 07/03/2023 11:00 At the request of: ON HE Procedure: US breast LT limited LIMITED ULTRASOUND OF LEFT BREAST: 07/03/2023 CLINICAL: 6 month follow-up of biopsy. Comparison is made to exams dated: 07/03/2023 mammogram, 06/05/2023 breast MRI, 11/06/2022 ultrasound biopsy, 11/06/2022 mammogram, 10/31/2022 ultrasound, and 10/24/2022 breast MRI - [facility]. Color flow and real-time ultrasound of the left breast 11 o'clock region were performed. There is a 0.5 cm x 0.4 cm x 0.5 cm oval hypoechoic mass with a circumscribed margin in the left breast at 11 o'clock posterior depth, 3 cm from the nipple. Previously this mass measured 0.6 x 0.4 x 0.5 cm on 10/31/2022. This mass is just deep to the previously biopsied benign mass with clip at site. The previously described 0.5 x 0.2 x 0.4 cm complicated cyst at 11 o'clock, 3 cm from the nipple is no longer visualized. There is an incidental benign 0.3 cm cyst. IMPRESSION: PROBABLY BENIGN Left breast 0.5 cm oval circumscribed mass at 11 o'clock, 3 cm from the nipple, which is located just deep to the biopsied mass, stable since 10/31/2022. Finding may represent a fibroadenoma versus cyst and is probably benign. Recommend follow up left breast ultrasound in 6 months to demonstrate over 1 year stability. Findings and recommendations were conveyed to the patient during today's evaluation. This exam was interpreted at Station ID: [id number]. Electronically Signed By: Erica Randolph M.D., PH.D Continued Report - Page 2 of 2 Patient Name: QUINN OLVERA date: 1985 Sex: F Attending Physician: Homar Indications: Date: 07/03/2023 11:00 At the request of: NO HE Procedure: US breast LT limited eb/:07/03/2023 11:00:03 letter sent: Followup Recommended Ultrasound BI-RADS: 3 Probably benign
== END ==
LOC: MAMMO 08:45
PROVIDERS: PCP Family Medicine; Referring Provider Family Medicine; Visit Provider Family Medicine
DX: N63.22 Unspecified lump in the left breast, upper inner quadrant (principal); N63.20 Unspecified lump in the left breast, unspecified quadrant; D24.2 Benign neoplasm of left breast; R92.8 Other abnormal and inconclusive findings on diagnostic imaging of breast; R92.343 Mammographic extreme density, bilateral breasts
CPT/HCPCS: 76642; 77066; G0279

== ENCOUNTER → 2023-07-14 08:33 | Outpatient (CLI) | payer OTHER, SELFPAY ==
[2023-07-14 09:37] LABS: Influenza A - CEPHEID Flu A NEGATIVE (NEGATIVE); Influenza B - CEPHEID Flu B NEGATIVE (NEGATIVE); Respiratory Syncytial Virus Negative (Negative)
[2023-07-14 09:41] LABS: COVID-19 CEPHEID 4-PLEX PCR Negative (Negative)
== END ==
PROVIDERS: PCP Family Medicine; Visit Provider Nurse Practitioner Family
DX: R50.9 Fever, unspecified (principal)
CPT/HCPCS: 0241U; 87480; 87510; 87660

== ENCOUNTER → 2023-10-30 08:39 | Outpatient (CLI) | payer OTHER, SELFPAY ==
[2023-11-01 15:36] LABS: Candida species Negative (Negative); Gardnerella vaginalis Positive (Negative); Trichomoas vaginalis Negative (Negative)
== END ==
LOC: LAB 11-03 08:40
PROVIDERS: PCP Family Medicine; Referring Provider Obstetrics & Gynecology; Visit Provider Obstetrics & Gynecology
DX: N89.8 Other specified noninflammatory disorders of vagina (principal)
CPT/HCPCS: 87480; 87510; 87660

== ENCOUNTER 2023-11-20 16:33 | Emergency (ER) | payer OTHER, SELFPAY ==
[2023-11-20] VITALS (7 sets, daily range): BP systolic 108–134; BP diastolic 74–97; PULSE 71–90; RESP 16; TEMP 36.8; O2SAT 99–100; BMI 19.9
--- NOTE | 2023-11-20 17:44 | PC.NURSE ---
Pt concerned the last 4 days had right hand numbness, pain, pins and needles sensation on right forearm, right hand, right index finger, right middle finger, right ring finger. She has been using a wrist brace, but pain is persistent and waxes/wanes in intensity. Today she developed right, anterior foot pain and parasthesia.
--- NOTE | 2023-11-20 18:53 | DI.CT.S_ITS ---
PROCEDURE: CT HEAD/BRAIN WO CON INDICATIONS: PERIPHERAL NUMBNESS X 4 DAYS TECHNIQUE: Noncontrast 4.5 mm thick angled axial sections acquired from the foramen magnum to the vertex, with coronal and sagittal reformats. For radiation dose reduction, the following was used: automated exposure control, adjustment of mA and/or kV according to patient size. COMPARISON: None. FINDINGS: Image quality: Excellent CSF spaces: Basal cisterns are patent. Lateral ventricles are symmetric. Volume: Generally maintained. Brain: No intracranial hemorrhage. Castro-white differentiation is grossly maintained. Craniofacial structures: No displaced fracture. Sinuses are clear. Orbits are intact. IMPRESSION: No acute intracranial pathology. If there is high concern for parenchymal pathology, consider further evaluation with MRI. Dictated by: Meño Ramirez M.D. on 11/20/2023 at 19:36 Approved by: Meño Ramirez M.D. on 11/20/2023 at 19:37
--- NOTE | 2023-11-20 18:54 | ED.NEUROSD ---
HPI - Neuro Symptoms/Deficit General Chief Complaint: Neuro Symptoms/Deficit Stated Complaint: numbness rt side of body Time Seen by Provider: 11/20/23 17:56 History of Present Illness HPI Narrative: 28-year-old female presents for evaluation right hand and right lower extremity numb sensation. Patient states that symptoms began 3-4 days ago with tingling and numb sensation in the fingertips and toes and have progressed. Patient has tingling/numb sensation from R wrist to fingers, as well as from L knee to toes over the anterior portion of the extremity. Patient denies trauma, injury, other inciting incident. On Anticoagulants: No Related Data Previous Rx's Medication Instructions Recorded metronidazole 1.3 % (65 mg/5 gram) 1 appful vaginal BEDTIME Bacterial 11/08/22 vaginal gel infection of the vagina 1 dose #5 grams metronidazole 500 mg tablet 500 mg PO TID Bacterial infection 12/04/22 #21 tabs prednisone 20 mg tablet 40 mg (2 x 20 mg) PO DAILY #10 tabs 08/14/23 clonazepam 0.5 mg tablet (Klonopin) 0.5 mg PO BID PRN anxiety #30 tabs 09/24/23 bupropion HCl 150 mg 24 hr tablet, 300 mg (2 x 150 mg) PO QAM #180 10/13/23 extended release tabs CMP Boric Acid 600mg Vaginal Supp See Rx Instructions .Route 11/04/23 .COMPLEX #12 tabs metronidazole 0.75 % (37.5 mg/5 1 appful vaginal DAILY #70 grams 11/04/23 gram) vaginal gel gabapentin 300 mg capsule 300 mg PO TID #90 caps 11/20/23 Allergies Allergy/AdvReac Type Severity Reaction Status Date / Time doxycycline AdvReac Intermediate numbness Verified 08/14/23 09:02 in hands Review of Systems Hematologic/Lymphatic On Anticoagulants: No Patient History Medical History Mixed anxiety and depressive disorder Encounter for wellness examination in adult (07/20/20) Muscle twitching Anxiety Depression H/O: depression Surgical History H/O rhinoplasty H/O LEEP (~2015) Social History Smoking Status: Never smoker Smoking Status: Never smoker alcohol intake frequency: a few times a week Substance Use Type: does not use Exam Initial Vital Signs Initial Vital Signs: Vital Signs Temperature 98.2 F 11/20/23 16:39 Pulse Rate 84 11/20/23 16:39 Respiratory Rate 16 11/20/23 16:39 Blood Pressure 120/90 11/20/23 16:39 Pulse Oximetry 100 11/20/23 16:39 Oxygen Delivery Method Room Air 11/20/23 16:39 Const: Awake, alert, nontoxic appearing MSK: Atraumatic, full range of motion, pulses equal Skin: Warm, Dry, intact, no rashes Neuro: AO x3, CN II-XII grossly intact. Decreased sensation dorsum and volar R hand from wrist to fingertips. Decreased sensation RLE from knee to toes over anterior portion, even between first and second toes. Patient reports normal sensation posterior RLE Course Orders Ordered: ED Orders 11/20/23 18:53 CT head/brain wo con Stat 11/20/23 19:20 CBC Auto Diff [Complete Blood Count AUTO DIFF] Stat CMP [Comprehensive Metabolic Panel] Stat Vital Signs Vital signs: Vital Signs - 8 hr 11/20/23 16:39 11/20/23 17:24 11/20/23 17:30 Temperature 98.2 F Pulse Rate 84 81 Respiratory Rate 16 Blood Pressure 120/90 108/74 Pulse Oximetry 100 100 Oxygen Delivery Method Room Air 11/20/23 17:30 11/20/23 18:02 11/20/23 18:02 Temperature Pulse Rate 80 90 Respiratory Rate Blood Pressure 134/97 H Pulse Oximetry 99 100 Oxygen Delivery Method Room Air Room Air 11/20/23 18:30 11/20/23 18:30 11/20/23 19:24 Temperature Pulse Rate 71 Respiratory Rate Blood Pressure 110/78 120/86 Pulse Oximetry 99 Oxygen Delivery Method Room Air 11/20/23 19:24 Temperature Pulse Rate 78 Respiratory Rate Blood Pressure Pulse Oximetry 99 Oxygen Delivery Method Room Air MDM - Neuro Symptoms/Deficit Lab Data 11/20/23 19:20 11/20/23 19:20 Labs: Lab Results 11/20/23 Range/Units 19:20 WBC 6.8 (4.5-11.0) X10^3/uL RBC 4.46 (4.0-5.2) X10^6/uL Hgb 13.9 (12.0-16.0) g/dL Hct 39.8 (36-46) % MCV 89.4 (80-100) fL MCH 31.1 (26-34) PG MCHC 34.8 (30-36) % RDW 11.8 (11.6-14.8) % Plt Count 218 (150-400) X10^3/uL Neut % (Auto) 58.6 (50-75) % Lymph % (Auto) 28.5 (25-40) % [place] % (Auto) 11.2 (3-14) % Eos % (Auto) 1.1 L (2-4) % Baso % (Auto) 0.6 (0-2) % Neut # (Auto) 4000 (8874-3272) /uL Lymph # (Auto) 1900 (9818-8037) /uL [place] # (Auto) 800 (0-900) /uL Eos # (Auto) 100 (0-450) /uL Baso # (Auto) 0 (0-100) /uL Sodium 140 (137-145) mmol/L Potassium 3.7 (3.4-5.1) mmol/L Chloride 107 (98-107) mmol/L Carbon Dioxide 28 (22-32) mmol/L BUN 12 (7-17) mg/dL Creatinine 0.61 (0.52-1.04) mg/dL Estimated GFR > 60 (>60) mL/min BUN/Creatinine Ratio 19.7 (6-22) Glucose 96 (70-100) mg/dL Calcium 8.9 (8.4-10.2) mg/dL Total Bilirubin 0.4 (0.2-1.3) mg/dL AST 23 (14-36) IU/L ALT 18 (<35) IU/L Alkaline Phosphatase 49 (38-126) U/L Total Protein 7.3 (6.3-8.2) g/dL Albumin 4.4 (3.5-5.0) g/dL Globulin 2.9 (1.7-4.1) g/dL Albumin/Globulin Ratio 1.5 (1.0-2.8) MDM Narrative Medical decision making narrative: Sensation of numbness and tingling in right hand and anterior right lower extremity. Does not seem to follow dermatomal pattern. Laboratory work and CT imaging negative for acute findings. Patient counseled to follow up with primary care doctor. Can trial gabapentin to see if this improves symptoms. Patient requested neurology referral, phone number was provided. Discharge Plan Departure Patient Disposition: Home Clinical Impression: Numbness and tingling of right arm and leg Instructions: DI for Numbness/Tingling Activity Restrictions/Additional Instructions: Your laboratory work today was normal. Your CT did not show any abnormalities. I do not know the cause of your numbness and tingling but I do not suspect stroke at this time. Follow up with your primary care doctor. There is a very good chance that this will resolve on its own without any leftover side effects. Gapabentin is a medication for nerve pain, this may help, it may not, but it is worth trying to see if it helps your symptoms. Prescriptions: New gabapentin 300 mg capsule 300 mg PO TID Qty: 90 0RF No Action metronidazole 1.3 % (65 mg/5 gram) gel 1 appful vaginal BEDTIME Qty: 5 0RF metronidazole 500 mg tablet 500 mg PO TID Qty: 21 0RF clonazepam [Klonopin] 0.5 mg tablet 0.5 mg PO BID PRN (Reason: anxiety) Qty: 30 2RF Rx Instructions: administer 30 minutes before bedtime bupropion HCl 150 mg tablet extended release 24 hr 300 mg PO QAM Qty: 180 0RF metronidazole 0.75 % (37.5mg/5 gram) gel 1 appful vaginal DAILY Qty: 70 0RF CMP Boric Acid 600mg Vaginal Supp See Rx Instructions .ROUTE .COMPLEX Qty: 12 3RF Rx Instructions: Remove shell and insert 1 suppository vaginally at bedtime once weekly; prednisone 20 mg tablet 40 mg PO DAILY Qty: 10 0RF Referrals: Chepe Graf MD [Primary Care Provider] - Jorge A Hoffman MD [Non-Staff] - Stand Alone Forms: Patient Portal/API
[2023-11-20 19:32] LABS: Add Manual Diff / Slide Review NO; Basophils Absolute Auto 0 /uL (0-100); Basophils Percent Auto 0.6 % (0-2); Eosinophils Absolute Auto 100 /uL (0-450); Eosinophils Percent Auto 1.1 % (2-4); Hematocrit 39.8 % (36-46); Hemoglobin 13.9 g/dL (12.0-16.0); Lymphocytes Absolute Auto 1900 /uL (1100-4500); Lymphocytes Percent Auto 28.5 % (25-40); Mean Corpuscular HGB Conc 34.8 % (30-36); Mean Corpuscular Hemoglobin 31.1 PG (26-34); Mean Corpuscular Volume 89.4 fL (80-100); Monocytes Absolute Auto 800 /uL (0-900); Monocytes Percent Auto 11.2 % (3-14); Neutrophils Absolute Auto 4000 /uL (1500-7000); Neutrophils Percent Auto 58.6 % (50-75); Platelet Count 218 X10^3/uL (150-400); Red Blood Cell Count 4.46 X10^6/uL (4.0-5.2); Red Cell Distribution Width 11.8 % (11.6-14.8); White Blood Cell Count 6.8 X10^3/uL (4.5-11.0)
[2023-11-20 19:48] LABS: Alanine Aminotransferase 18 IU/L (<35); Albumin 4.4 g/dL (3.5-5.0); Albumin Globulin Ratio 1.5 (1.0-2.8); Alkaline Phosphatase 49 U/L (38-126); Aspartate Aminotransferase 23 IU/L (14-36); BUN Creatinine Ratio 19.7 (6-22); Bilirubin Total 0.4 mg/dL (0.2-1.3); Blood Urea Nitrogen 12 mg/dL (7-17); Calcium 8.9 mg/dL (8.4-10.2); Carbon Dioxide 28 mmol/L (22-32); Chloride 107 mmol/L (98-107); Estimated Glomerular Filt Rate > 60 mL/min (>60); Globulin 2.9 g/dL (1.7-4.1); Glucose 96 mg/dL (70-100); HEMOLYSIS < 15 (0-50); Potassium 3.7 mmol/L (3.4-5.1); Sodium 140 mmol/L (137-145); Total Protein 7.3 g/dL (6.3-8.2)
== END 2023-11-20 20:15 | disposition home or self-care (01) ==
PROVIDERS: Emergency Provider Emergency Medicine; PCP Family Medicine
DX: R20.0 Anesthesia of skin (principal)
CPT/HCPCS: 70450; 80053; 85025; 99284

== ENCOUNTER → 2024-01-15 | Outpatient (CLI) | payer OTHER, SELFPAY ==
--- NOTE | 2024-01-15 08:50 | DI.US.S_ITS ---
LIMITED ULTRASOUND OF RIGHT BREAST: 01/15/2024 CLINICAL: Palpable right breast lump. Comparison is made to exams dated: 01/15/2024 mammogram and 04/16/[address] [facility]. Color flow ultrasound of the right breast 2 o'clock and 10 o'clock regions was performed. Castro scale images of the real-time examination were reviewed. No sonographic abnormality is seen in the area of clinical concern in the right breast at 2 o'clock, 3 cm from the nipple. No sonographic abnormality is seen in the area of clinical concern in the right breast at 10 o'clock, 9 cm from the nipple. Incidental oval hypoechoic mass with circumscribed margins at 10 o'clock, 9 cm from the nipple measuring 0.4 x 0.5 x 0.6 cm. There is some posterior acoustic enhancement. Color-flow imaging demonstrates that there is no vascularity. Incidental benign clustered microcysts at 10 o'clock, 8 cm from the nipple measuring up to 0.8 cm. IMPRESSION: PROBABLY BENIGN 1) No sonographic abnormality in the areas of clinical concern at 2 and 10 o'clock. Clinical follow-up is recommended, and further management of palpable abnormalities or other focal signs or symptoms should be based on the results of clinical evaluation. If palpable abnormality or other concerning symptom persists or progresses, further clinical evaluation should be considered. 2) Incidental 0.6 oval hypoechoic mass at 10 o'clock, 9 cm from the nipple. Finding resembles a complicated cyst and is probably benign. Recommend follow-up right breast ultrasound in 6 months (June 2024) when patient is due for bilateral mammogram. 3) Incidental clustered microcysts at 10 o'clock, 8 cm from the nipple are benign. No imaging follow-up needed. Findings and recommendations were conveyed to the patient during today's evaluation. This exam was interpreted at Station ID: [id number]. Electronically Signed By: Erica Randolph M.D., Ph.D. eb/:01/21/2024 13:32:00 letter sent: Clinical Evaluation ACR BI-RADS Category 3: Probably Benign
--- NOTE | 2024-01-15 08:50 | DI.MG.S_ITS ---
UNILATERAL RIGHT DIGITAL DIAGNOSTIC MAMMOGRAM 3D/2D: 01/15/2024 CLINICAL: Right breast lumps. Comparison is made to exams dated: 07/03/2023 mammogram and 04/16/2021 mammogram - [facility]. The breasts are extremely dense, which lowers the sensitivity of mammography (category d />75% glandular tissue). A BB marker was placed in the area of clinical concern, and no mammographic abnormality is identified. No significant masses, calcifications, or other findings are seen in the breast. IMPRESSION: INCOMPLETE: NEED ADDITIONAL IMAGING EVALUATION No mammographic abnormality in the area of palpable concern. Recommend further evaluation with targeted breast ultrasound, which will immediately follow this exam. Left breast ultrasound for previously described probably benign finding will also be performed concurrently. Based on the Tyrer Cuzick model (a risk assessment model) the patient's lifetime risk is 19.9% and her 10 year risk is 2.4%. According to the ACR, ACS, and NCCN guidelines, an annual breast MRI exam along with mammogram is recommended if the patient's lifetime risk is 20% or greater. This exam was interpreted at Station ID: [id number]. NOTE: For mammograms, a report in lay terms will be sent to the patient. Approximately 15% of breast malignancies will not be visualized mammographically. In the management of a palpable breast mass, a negative mammogram must not discourage biopsy of a clinically suspicious lesion. Electronically Signed By: Erica Randolph M.D., Ph.D. eb/:01/15/2024 09:29:59 ACR BI-RADS Category 0: Incomplete: Need Additional Imaging Evaluation
--- NOTE | 2024-01-15 08:50 | DI.US.S_ITS ---
LIMITED ULTRASOUND OF LEFT BREAST: 01/15/2024 CLINICAL: Patient returns today to evaluate a focal asymmetry in the left breast. Comparison is made to exam dated: 07/03/2023 [facility]. Color flow ultrasound of the left breast 11 o'clock region was performed. Castro scale images of the real-time examination were reviewed. There is a 0.5 cm x 0.4 cm x 0.5 cm oval hypoechoic mass with a circumscribed margin in the left breast at 11 o'clock, 3 cm from the nipple. Previously this mass measured 0.5 x 0.4 x 0.5 cm on 07/03/2023 and 0.6 x 0.4 x 0.5 cm on 10/31/2022. This mass is located just deep to the biopsy-proven benign fibroadenoma with clip at site. IMPRESSION: PROBABLY BENIGN Left breast 0.5 cm oval circumscribed mass at 11 o'clock position, just deep to the benign biopsied mass and stable since October 2022. Finding may represent a fibroadenoma versus cyst and is probably benign. Recommend follow-up left breast ultrasound in 6 months (June 2024) when patient is due for bilateral mammogram. Findings and recommendations were conveyed to the patient during today's evaluation. This exam was interpreted at Station ID: [id number]. Electronically Signed By: Erica Randolph M.D., Ph.D. eb/:01/21/2024 13:14:23 letter sent: Followup Recommended ACR BI-RADS Category 3: Probably Benign
== END ==
PROVIDERS: PCP Family Medicine; Referring Provider Family Medicine; Visit Provider Family Medicine
DX: D24.2 Benign neoplasm of left breast (principal); R92.2 Inconclusive mammogram; N63.22 Unspecified lump in the left breast, upper inner quadrant; N63.11 Unspecified lump in the right breast, upper outer quadrant; R92.343 Mammographic extreme density, bilateral breasts
CPT/HCPCS: 76642; 77065; G0279

== ENCOUNTER → 2024-04-13 09:25 | Outpatient (CLI) | payer OTHER, SELFPAY ==
--- NOTE | 2024-04-13 09:26 | DI.RAD.S_ITS ---
PROCEDURE: XR FOREARM RT 2V INDICATIONS: Right forearm pain TECHNIQUE: 2 views of the forearm were acquired. COMPARISON: None. FINDINGS: Bones: No fractures or dislocations. No suspicious bony lesions. Soft tissues: No suspicious soft tissue calcifications or masses. IMPRESSION: No acute bony abnormality. Dictated by: Sonal Monroe MD, PhD on 04/13/2024 at 9:53 Approved by: Sonal Monroe MD, PhD on 04/13/2024 at 9:53
== END ==
PROVIDERS: PCP Family Medicine; Referring Provider Nurse Practitioner Family; Visit Provider Nurse Practitioner Family
DX: S50.10XA Contusion of unspecified forearm, initial encounter (principal); X58.XXXA Exposure to other specified factors, initial encounter
CPT/HCPCS: 73090

== ENCOUNTER → 2024-06-03 15:00 | Outpatient (CLI) | payer OTHER, SELFPAY ==
--- NOTE | 2024-06-03 15:01 | DI.MRI.S_ITS ---
PROCEDURE: MR LUMBAR SPINE WO CON INDICATIONS: LUMBAR SPINE PAIN W RADIATING BURNING PAINS TECHNIQUE: Noncontrast sagittal T1 spin echo and T2 fast echo, sagittal STIR, and T2 fast spin echo through the lumbar spine. In cases with scoliosis, additional coronal T2 fast spin echo may be performed. COMPARISON: [facility], CT, CT ABDOMEN PELVIS W CON, 10/22/2022, 10:19. FINDINGS: Image quality: Diagnostic, with note made of motion artifact. Alignment and Curvature: There is normal bony alignment. Bone Marrow: Marrow is of normal overall signal. No acute vertebral body compression fractures. Spinal Cord: Conus medullaris terminates at the L1 level. Visualized cord demonstrates normal signal and size. Paraspinous Soft Tissues: No paravertebral masses. T12-L1: Normal appearance. L1-L2: Normal appearance. L2-L3: Normal appearance. L3-L4: Normal appearance. L4-L5: The disc height and disk signal are well-preserved. Mild generalized disc bulge is seen. Mild facet joint hypertrophy is seen. Mild bilateral neural foraminal narrowing is seen. No central canal narrowing is seen. L5-S1: The disc height and disk signal are well-preserved. Mild generalized disc bulge is seen. Mild facet joint hypertrophy is seen. Mild bilateral neural foraminal narrowing is seen. No central canal narrowing is seen. IMPRESSION: Focal lower lumbar spine degenerative changes are seen. Dictated by: Ghassan Santana M.D. on 06/03/2024 at 15:44 Approved by: Ghassan Santana M.D. on 06/03/2024 at 15:47
== END ==
PROVIDERS: PCP Family Medicine; Referring Provider Chiropractor; Visit Provider Chiropractor
DX: M47.26 Other spondylosis with radiculopathy, lumbar region (principal); M47.27 Other spondylosis with radiculopathy, lumbosacral region; M51.16 Intervertebral disc disorders with radiculopathy, lumbar region; M51.17 Intervertebral disc disorders with radiculopathy, lumbosacral region; M99.13 Subluxation complex (vertebral) of lumbar region; M54.51 Vertebrogenic low back pain
CPT/HCPCS: 72148

== ENCOUNTER → 2024-12-27 11:14 | Outpatient (CLI) | payer OTHER, SELFPAY ==
--- NOTE | 2024-12-27 | DI.MRI.S_ITS ---
PROCEDURE: MR CERVICAL SPINE WO CON INDICATIONS: Radiculopathy TECHNIQUE: Noncontrast sagittal T1 spin echo and T2 fast spin echo, sagittal STIR, foraminal oblique sagittal T2 fast spin echo, and axial gradient echo or T2 fast spin echo through the cervical spine. COMPARISON: None. FINDINGS: Image quality: Excellent. Alignment and Curvature: There is normal bony alignment. Bone Marrow: Marrow demonstrates normal overall signal. Spinal Cord: Visualized spinal cord has normal size and signal. No cerebellar tonsillar herniation. Paraspinous Soft Tissues: No paravertebral masses. Prevertebral soft tissues are normal in thickness. C2-C3: Normal appearance. C3-C4: Normal appearance. C4-C5: Normal appearance. C5-C6: Normal appearance. C6-C7: Normal appearance. C7-T1: Normal appearance. IMPRESSION: No central canal or neural foraminal stenosis. No significant degenerative changes. Approved by: Gm Casas M.D. on 12/27/2024 at 12:35
--- NOTE | 2024-12-27 | DI.MRI.S_ITS ---
PROCEDURE: MR THORACIC SPINE WO CON INDICATIONS: Radiculopathy TECHNIQUE: Noncontrast sagittal T1 spine echo and T2 fast spin echo, sagittal STIR, and T2 fast spin echo through the thoracic spine. COMPARISON: None. FINDINGS: Image quality: Excellent. Alignment and Curvature: There is normal bony alignment. Bone Marrow: Marrow is of normal overall signal. No acute vertebral body compression fractures. Spinal Cord: Visualized spinal cord is normal in size and signal. Paraspinous Soft Tissues: No paravertebral masses. Miscellaneous: Degenerative disc disease of the midthoracic spine with disc desiccation height loss and small posterior disc bulges. No significant central canal or neural foraminal stenosis. IMPRESSION: Mild degenerative disc disease of the midthoracic spine. No central canal or neural foraminal stenosis. Approved by: Gm Casas M.D. on 12/27/2024 at 12:39
== END ==
LOC: MRI 11:15
PROVIDERS: PCP Family Medicine; Referring Provider Family Medicine; Visit Provider Neurological Surgery
DX: M54.12 Radiculopathy, cervical region (principal); M51.34 Other intervertebral disc degeneration, thoracic region; R68.82 Decreased libido
CPT/HCPCS: 36415; 72141; 72146; 84270; 84402; 84403

== ENCOUNTER → 2024-12-27 12:06 | Outpatient (CLI) | payer OTHER, SELFPAY ==
[2025-01-04 01:38] LABS: Percent Free Testosterone 1.21 % (0.50-2.80)
== END ==
PROVIDERS: PCP Family Medicine
DX: R68.82 Decreased libido (principal)
CPT/HCPCS: 36415; 84270; 84402; 84403

== ENCOUNTER 2025-02-04 13:52 | Emergency (ER) | payer OTHER, SELFPAY ==
[2025-02-04 14:03] VITALS: BP 128/88; PULSE 88; RESP 16; TEMP 36.4; O2SAT 100; BMI 19.9
--- NOTE | 2025-02-04 14:39 | ED.EXTPRO ---
HPI - Extremity Problem <Mari Roth PA-C - Last Filed: 02/04/25 17:53> General Chief complaint: Extremity Problem,Nontraumatic Stated complaint: possible blood clot Time Seen by Provider: 02/04/25 14:07 Source: patient Mode of arrival: Ambulatory History of Present Illness HPI Narrative: Ms. James is a very pleasant 39-year-old female with no reported past medical history who presents to the emergency department for anterior left lower extremity pain and swelling x1 day. Patient is concerned for possible blood clot as she did have prolonged air travel from [place] to [place], returning on Friday, and recently increased dose of HRT, transdermal estradiol. Reports when she woke up this morning she noticed a focal area of firmness/swelling in addition to pain and tenderness on the anterior left murillo. She took Aleve however symptoms continued to worsen. 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 Denies history of blood thinners or VTE. No injuries to the lower leg. No other symptoms. Related Data Home Medications ?Medication ?Instructions ?Recorded ?Confirmed estradiol 0.05 mg/24 hr semiweekly transdermal Perimenopause 01/21/25 01/21/25 transdermal patch progesterone micronized 100 mg 200 mg PO DAILY Perimenopause 01/21/25 01/21/25 capsule Previous Rx's ?Medication ?Instructions ?Recorded amoxicillin 875 mg-potassium 1 tab PO BID #20 tabs 01/21/25 clavulanate 125 mg tablet bupropion HCl 150 mg 24 hr tablet, 300 mg (2 x 150 mg) PO QAM #180 01/21/25 extended release tabs clonazepam 0.5 mg tablet (Klonopin) 0.5 mg PO BID PRN anxiety #30 tabs 01/21/25 Allergies Allergy/AdvReac Type Severity Reaction Status Date / Time doxycycline AdvReac Intermediate numbness Verified 02/04/25 14:07 in hands Review of Systems <Mari Roth PA-C - Last Filed: 02/04/25 17:53> Review of Systems ROS Unobtainable: All systems reviewed & are unremarkable except as noted in HPI and below Patient History <Mari Roth PA-C - Last Filed: 02/04/25 17:53> Medical History Paresthesia Mixed anxiety and depressive disorder Encounter for wellness examination in adult (07/20/20) Muscle twitching Anxiety Depression H/O: depression Surgical History H/O rhinoplasty H/O LEEP (~2016) Social History Smoking Status: Never smoker Smoking Status: Never smoker alcohol intake frequency: a few times a week Exam <Mari Roth PA-C - Last Filed: 02/04/25 17:53> Narrative Exam Narrative: GENERAL: 39 year old patient appears stated age. Well-developed patient, in no acute distress. HEAD: Atraumatic. Normocephalic. EYES: No scleral icterus. No injection or drainage. NECK: Trachea midline. Cervical ROM intact. CARDIOVASCULAR: Regular rate RESPIRATORY: ?Nonlabored respirations. ?Speaking in clear, full sentences. ?? EXTREMITIES: Focal area of tenderness anterior, mid, left murillo. No obvious edema. No palpable nodule. No erythema or increased warmth. 2+ DP and PT pulses bilaterally. NEURO: AOx3. ?Clear speech. ?Moves all 4 extremities appropriately. SKIN: No rash or erythema of visible areas Initial Vital Signs Initial Vital Signs: Vital Signs Temperature 97.5 F L 02/04/25 14:03 Pulse Rate 88 02/04/25 14:03 Respiratory Rate 16 02/04/25 14:03 Blood Pressure 128/88 02/04/25 14:03 Pulse Oximetry 100 02/04/25 14:03 Oxygen Delivery Method Room Air 02/04/25 14:03 <Ny Salcedo MD - Last Filed: 02/05/25 00:16> Initial Vital Signs Initial Vital Signs: Vital Signs Temperature 97.5 F L 02/04/25 14:03 Pulse Rate 88 02/04/25 14:03 Respiratory Rate 16 02/04/25 14:03 Blood Pressure 128/88 02/04/25 14:03 Pulse Oximetry 100 02/04/25 14:03 Oxygen Delivery Method Room Air 02/04/25 14:03 Scores <Mari Roth PA-C - Last Filed: 02/04/25 17:53> Wells' Criteria for DVT Active Cancer (Treatment within 6 months): No Bedridden recently >3 days or major surgery within 4 weeks: No Calf Swelling >3cm compared to other leg: No Collateral (nonvericose) superficial veins present: No Entire leg swollen: No Localized tenderness along the deep vein system: Yes Pitting edema, confined to symtomatic leg: No Paralysis, paresis, or recent plaster immobilization of ext: No Previously documented DVT: No Alternative dx to DVT as likely or more likely: No Festus' criteria for DVT: 1 <Ny Salcedo MD - Last Filed: 02/05/25 00:16> Sinan Criteria for DVT Festus' criteria for DVT: 1 Course <Mari Roth PA-C - Last Filed: 02/04/25 17:53> Orders Ordered: ED Orders 02/04/25 16:34 D Dimer Stat Vital Signs Vital signs: Vital Signs - 8 hr 02/04/25 17:02 Pulse Rate 86 Respiratory Rate 18 Blood Pressure 113/70 Pulse Oximetry 99 Oxygen Delivery Method Room Air <Ny Salcedo MD - Last Filed: 02/05/25 00:16> Orders Ordered: ED Orders 02/04/25 16:34 D Dimer Stat Vital Signs Vital signs: Vital Signs - 8 hr 02/04/25 17:02 Pulse Rate 86 Respiratory Rate 18 Blood Pressure 113/70 Pulse Oximetry 99 Oxygen Delivery Method Room Air MDM - Extremity (Nontraumatic) <Mari Roth PA-C - Last Filed: 02/04/25 17:53> Medical Records Attestation: I reviewed the patient's medical records. Lab Data Labs: Lab Results 02/04/25 Range/Units 16:34 D-Dimer < 215 (<500) ng/ml Imaging Data LLE Venous US: Radiologist's Impression: PROCEDURE: US PERIPH VENOUS LOW EXTREM LT INDICATIONS: PAIN/SWELLING. RECENT TRAVEL. HRT. TECHNIQUE: Real-time imaging, as well as color and pulse Doppler interrogation, were performed of the lower extremity deep veins from the inguinal ligament to the popliteal fossa, with documentation of the visualized calf veins. COMPARISON: None. FINDINGS: The common femoral, femoral, popliteal, and the visualized calf veins are normally compressible, and free of intraluminal thrombus. Color and pulse Doppler demonstrate normal phasic intraluminal flow. There is normal augmentation response to distal compression maneuver. IMPRESSION: Negative left lower extremity duplex venous ultrasound for DVT. Dictated by: Joe Connolly M.D. on 02/04/2025 at 16:28 Approved by: Joe Connolly M.D. on 02/04/2025 at 16:28 [facility] Narrative Medical decision making narrative: 39-year-old female with no reported past medical history who presents to the emergency department for anterior left lower extremity pain and swelling x1 day. Differential diagnosis includes but is not limited to DVT, SVT, varicose vein cyst, lipoma, etc. On exam patient is in no acute distress, nontoxic-appearing, all vital signs within normal limits. Patient has focal tenderness to palpation of anterior mid left murillo, currently on HRT with recent prolonged travel, she is concerned for possible DVT. She is neurovascularly intact. No visible abnormalities on exam however she does have tenderness, we will obtain venous ultrasound, ultrasound is negative, we will obtain D-dimer for possible 1 week repeat ultrasound, Well's Score 1. Left lower extremity venous ultrasound negative for DVT. D-dimer undetectable. Discussed supportive care with the patient including compression socks, rice therapy. Discussed ER return precautions and PCP follow up. Patient verbalized understanding of all information agreeable with the plan. She is ambulatory and stable for discharge home. <Ny Salcedo MD - Last Filed: 02/05/25 00:16> Lab Data Labs: Lab Results 02/04/25 Range/Units 16:34 D-Dimer < 215 (<500) ng/ml Discharge Plan Departure Patient Disposition: Home Clinical Impression: Localized swelling of left lower leg Instructions: DI for Peripheral Edema-Unilateral Activity Restrictions/Additional Instructions: Dear Erika, Thank you for coming to the emergency department. Today you were evaluated for an area of pain and swelling in the left lower leg, with concern of blood clot. Your ultrasound today was negative for superficial or deep blood clots, and your lab work was reassuring. At this time I would like you to rest, elevate the leg, wear compression socks, apply ice, and use NSAIDs such as ibuprofen or Aleve to help with any discomfort. Please continue to monitor your symptoms, please follow up with your primary care doctor, please return to the emergency department you develop any new or worsening symptoms such as significant increase in swelling, redness, fevers, severe pain or any other concerns. Please follow up with your primary care doctor within the next 2-3 days for ER follow-up. (If you do not have a PCP you can call [phone]. ?to schedule an appointment with an [facility] Primary Care Provider) IF YOU DEVELOP ANY NEW OR WORSENING SYMPTOMS, RETURN TO THE ER! Please read the attached instructions, they highlight more specific treatments and interventions for you at home. Thank you for letting me participate in your care, Mari Roth PA-C Prescriptions: No Action estradiol 0.05 mg/24 hr patch semiweekly transdermal progesterone micronized 100 mg capsule 200 mg PO DAILY clonazepam [Klonopin] 0.5 mg tablet 0.5 mg PO BID PRN (Reason: anxiety) Qty: 30 2RF bupropion HCl 150 mg tablet extended release 24 hr 300 mg PO QAM Qty: 180 3RF amoxicillin-pot clavulanate 875-125 mg tablet 1 tab PO BID Qty: 20 0RF Referrals: Chepe Graf MD [Primary Care Provider, Family Practice] Stand Alone Forms: Patient Portal/API ED Sign-out <Ny Salcedo MD - Last Filed: 02/05/25 00:16> Cosign ED Attending Cosignature Attestation: I was immediately available in the department for consultation throughout this patient's visit. Ny Salcedo MD
--- NOTE | 2025-02-04 14:46 | DI.US.S_ITS ---
PROCEDURE: US PERIPH VENOUS LOW EXTREM LT INDICATIONS: PAIN/SWELLING. RECENT TRAVEL. HRT. TECHNIQUE: Real-time imaging, as well as color and pulse Doppler interrogation, were performed of the lower extremity deep veins from the inguinal ligament to the popliteal fossa, with documentation of the visualized calf veins. COMPARISON: None. FINDINGS: The common femoral, femoral, popliteal, and the visualized calf veins are normally compressible, and free of intraluminal thrombus. Color and pulse Doppler demonstrate normal phasic intraluminal flow. There is normal augmentation response to distal compression maneuver. IMPRESSION: Negative left lower extremity duplex venous ultrasound for DVT. Dictated by: Joe Connolly M.D. on 02/04/2025 at 16:28 Approved by: Joe Connolly M.D. on 02/04/2025 at 16:28
[2025-02-04 17:02] VITALS: BP 113/70; PULSE 86; RESP 18; O2SAT 99
== END 2025-02-04 17:02 | disposition home or self-care (01) ==
PROVIDERS: Emergency Provider Physician Assistant; PCP Family Medicine
DX: R60.0 Localized edema (principal)
CPT/HCPCS: 36415; 85379; 93971; 99281; 99284

== ENCOUNTER → 2025-03-01 09:51 | Outpatient (CLI) | payer OTHER, SELFPAY ==
[2025-03-02 13:11] LABS: Trichomoas vaginalis Negative (Negative)
== END ==
PROVIDERS: PCP Family Medicine; Visit Provider Obstetrics & Gynecology
DX: N89.8 Other specified noninflammatory disorders of vagina (principal); N89.9 Noninflammatory disorder of vagina, unspecified
CPT/HCPCS: 81514